=== PATIENT | female | born 1965 | race Caucasian/White ===

== ENCOUNTER 2016-08-07 12:17 | Emergency (ER) | payer OTHER ==
--- NOTE | 2016-08-07 17:02 | ED ---
Psych HPI - General Chief Complaint: Psychiatric Symptoms Stated Complaint: Mental Health Time Seen by Provider: 08/07/16 16:27 Source: patient, RN notes reviewed Mode of arrival: ambulatory - History of Present Illness Initial Comments: Patient is a 51-year-old female presents to emergency room for psych evaluation. Patient states he's been feeling depressed for the past few months. Patient states she is on medication for depression. Patient states she is currently going through a separation has been increasingly depressed. Patient states that on and off suicidal ideations. Patient denies any plans. Patient denies current suicidal ideation. Patient has homicidal ideations, visual or auditory hallucinations. Patient states she called her primary care office and was advised to come here for psych evaluation. Patient denies headache, chest pain, shortness of breath, nausea, vomiting. Patient denies alcohol or drug use. Patient denies smoking. Patient denies any health problems. - Related Data Home Medications Medication Instructions Recorded Confirmed Venlafaxine HCl [Effexor] 75 mg PO BID 08/07/16 08/07/16 carBAMazepine [TEGretol] 500 mg PO Q12H 08/07/16 08/07/16 clonazePAM [KlonoPIN] 0.5 - 1 mg PO HS PRN 08/07/16 08/07/16 Allergies Allergy/AdvReac Type Severity Reaction Status Date / Time No Known Allergies Allergy Verified 08/07/16 16:55 Review of Systems ROS Statement: Those systems with pertinent positive or pertinent negative responses have been documented in the HPI. ROS Other: All systems not noted in ROS Statement are negative. Past Medical History Past Medical History: Seizure Disorder Additional Past Medical History / Comment(s): depression epilepsy History of Any Multi-Drug Resistant Organisms: None Reported Additional Past Surgical History / Comment(s): oopherectomy Past Psychological History: Anxiety, Depression Smoking Status: Never smoker Past Alcohol Use History: None Reported Past Drug Use History: None Reported General Exam - General Exam Comments Initial Comments: Sitting in exam room in no acute distress. Limitations: no limitations General appearance: alert, in no apparent distress Head exam: Present: atraumatic, normocephalic, normal inspection Eye exam: Present: normal appearance ENT exam: Present: normal exam Neck exam: Present: normal inspection Respiratory exam: Present: normal lung sounds bilaterally. Absent: respiratory distress Cardiovascular Exam: Present: regular rate, normal rhythm, normal heart sounds Extremities exam: Present: normal inspection Back exam: Present: normal inspection Neurological exam: Present: alert, oriented X3, CN II-XII intact, normal gait Psychiatric exam: Present: normal affect, normal mood Skin exam: Present: warm, dry, intact, normal color. Absent: rash Course Vital Signs 08/07/16 08/07/16 12:47 19:21 Temperature 98.3 F 97 F L Pulse Rate 77 90 Respiratory 18 16 Rate Blood Pressure 129/75 133/75 O2 Sat by Pulse 98 97 Oximetry Medical Decision Making - Medical Decision Making Patient is a 51-year-old female presents emergency room for psychiatric evaluation. Patient medically cleared to be evaluated by psych. Patient evaluated by psych and does not meet admission criteria at this time. Patient was advised to follow-up outpatient. Patient will continue on her current medications. Patient states she understands everything that was discussed with her. Patient states that she will return for any suicidal ideations. - Lab Data Lab Results 08/07/16 Range/Units 16:42 Urine Color Yellow Urine Appearance Clear (Clear) Urine pH 5.5 (5.0-8.0) Ur Specific [place] 1.026 (1.001-1.035) Urine Protein Trace H (Negative) Urine Glucose (UA) Negative (Negative) Urine Ketones Negative (Negative) Urine Blood Small H (Negative) Urine Nitrate Negative (Negative) Urine Bilirubin Negative (Negative) Urine Urobilinogen <2.0 (<2.0) mg/dL Ur Leukocyte Esterase Negative (Negative) Urine RBC 2 (0-5) /hpf Ur Squamous Epith Cells 2 (0-4) /hpf Urine Mucus Rare H (None) /hpf Urine Opiates Screen Not Detected (NotDetected) Ur Oxycodone Screen Not Detected (NotDetected) Urine Methadone Screen Not Detected (NotDetected) Ur Propoxyphene Screen Not Detected (NotDetected) Ur Barbiturates Screen Not Detected (NotDetected) U Tricyclic Antidepress Not Detected (NotDetected) Ur Phencyclidine Scrn Not Detected (NotDetected) Ur Amphetamines Screen Not Detected (NotDetected) U Methamphetamines Scrn Not Detected (NotDetected) U Benzodiazepines Scrn Not Detected (NotDetected) Urine Cocaine Screen Not Detected (NotDetected) U Marijuana (THC) Screen Not Detected (NotDetected) Disposition Clinical Impression: Depression Disposition: HOME SELF-CARE Condition: Good Instructions: Depression (ED) Additional Instructions: Continue with outpatient follow-up. Take medications as directed. If any new symptom arises or symptoms worsen, return to ER as soon as possible. Referrals: None,Stated [Primary Care Provider] - 1-2 days Time of Disposition: 19:10
[2016-08-07 17:17] LABS: Appearance,Urine Clear (Clear); Bilirubin,Urine Negative (Negative); Glucose,Urine (UA) Negative (Negative); Ketones,Urine Negative (Negative); Leukocyte Esterase,Urine Negative (Negative); Mucus,Urine Rare /hpf; Nitrite,Urine Negative (Negative); PH, Urine 5.5 (5.0-8.0); Particle Count 3211; Protein,Urine Trace (Negative); RBC,Urine 2 /hpf (0-5); Specific Gravity,Urine 1.026 (1.001-1.035); Squamous Epithelial Cell,Urine 2 /hpf (0-4); UA Billing (MACRO vs. MICRO) MICRO; Urobilinogen,Urine <2.0 mg/dL (<2.0)
[2016-08-07] MEDS ORDERED: ACETAMINOPHEN TAB 500 MG TAB PO STA (18:35)
[2016-08-07 19:21] VITALS: BP 133/75; PULSE 90; RESP 16; TEMP 97
== END 2016-08-07 19:22 | disposition home or self-care (01) ==
LOC: EC 12:17
DX: F32.9 Major depressive disorder, single episode, unspecified (principal); G40.909 Epilepsy, unspecified, not intractable, without status epilepticus; F41.9 Anxiety disorder, unspecified; R45.851 Suicidal ideations; R45.850 Homicidal ideations; Z79.899 Other long term (current) drug therapy
CPT/HCPCS: 80306; 81001; 82075; 99285

== ENCOUNTER 2016-12-14 12:40 | Inpatient (IN) | payer MEDICAID, OTHER ==
--- NOTE | 2016-12-14 13:24 | ED ---
General Adult HPI - General Chief complaint: Psychiatric Symptoms Stated complaint: Mental Health Time Seen by Provider: 12/14/16 13:02 Source: EMS, RN notes reviewed Mode of arrival: EMS - History of Present Illness Initial comments: Patient 51-year-old female significant past medical history for depression, who presents emergency room today with a chief complaint of increased depression over the last few weeks. She states she's slowly been getting worse. She does admit that she's been having thoughts of hurting himself. Gives example of cutting herself. When asked is she suicidal she states she has had some thoughts. She denies any specific plan. Denies any homicidal thoughts or plans. Denies any visual or auditory hallucinations. States she's been taking her medications as prescribed and she did talk to her counselor today who advised coming here to the emergency room for evaluation. Patient denies any recent fever, chills, shortness of breath, chest pain, back pain, abdominal pain , nausea or vomiting, numbness or tingling, dysuria or hematuria, constipation or diarrhea, headaches or visual changes, or any other complaints. - Related Data Home Medications Medication Instructions Recorded Confirmed Venlafaxine HCl [Effexor] 75 mg PO BID 08/07/16 12/14/16 carBAMazepine [TEGretol] 500 mg PO Q12H 08/07/16 12/14/16 clonazePAM [KlonoPIN] 1.5 mg PO HS PRN 08/07/16 12/14/16 [id number] 2 tab PO DAILY PRN 12/14/16 12/14/16 [Excedrin] Venlafaxine HCl [Effexor] 37.5 mg PO BID 12/14/16 12/14/16 Allergies Allergy/AdvReac Type Severity Reaction Status Date / Time No Known Allergies Allergy Verified 12/14/16 13:37 Review of Systems ROS Statement: Those systems with pertinent positive or pertinent negative responses have been documented in the HPI. ROS Other: All systems not noted in ROS Statement are negative. Past Medical History Past Medical History: Seizure Disorder Additional Past Medical History / Comment(s): depression epilepsy History of Any Multi-Drug Resistant Organisms: None Reported Additional Past Surgical History / Comment(s): oopherectomy Past Psychological History: Anxiety, Depression Smoking Status: Never smoker Past Alcohol Use History: None Reported Past Drug Use History: None Reported General Exam - General Exam Comments Initial Comments: General: The patient is awake and alert, in no distress, and does not appear acutely ill. Eye: Pupils are equal, round and reactive to light, extra-ocular movements are intact. No nystagmus. There is normal conjunctiva bilaterally. No signs of icterus. Ears, nose, mouth and throat: There are moist mucous membranes and no oral lesions. Neck: The neck is supple, there is no tenderness or JVD. Cardiovascular: There is a regular rate and rhythm. No murmur, rub or gallop is appreciated. Respiratory: Lungs are clear to auscultation, respirations are non-labored, breath sounds are equal. No wheezes, stridor, rales, or rhonchi. Musculoskeletal: Normal ROM, no tenderness. Strength 5/5. Sensation intact. Pulses equal bilaterally 2+. Neurological: A&O x 3. CN II-XII intact, There are no obvious motor or sensory deficits. Coordination appears grossly intact. Speech is normal. Skin: Skin is warm and dry and no rashes or lesions are noted. Psychiatric: Cooperative. Course Vital Signs 12/14/16 12:45 Temperature 98.1 F Pulse Rate 80 Respiratory 18 Rate Blood Pressure 147/81 O2 Sat by Pulse 94 L Oximetry Medical Decision Making - Medical Decision Making Patient has been seen here in the emergency room by [facility]. They've recommended admission to the hospital. - Lab Data Lab Results 12/14/16 Range/Units 13:04 Urine Opiates Screen Not Detected (NotDetected) Ur Oxycodone Screen Not Detected (NotDetected) Urine Methadone Screen Not Detected (NotDetected) Ur Propoxyphene Screen Not Detected (NotDetected) Ur Barbiturates Screen Not Detected (NotDetected) U Tricyclic Antidepress Not Detected (NotDetected) Ur Phencyclidine Scrn Not Detected (NotDetected) Ur Amphetamines Screen Not Detected (NotDetected) U Methamphetamines Scrn Not Detected (NotDetected) U Benzodiazepines Scrn Not Detected (NotDetected) Urine Cocaine Screen Not Detected (NotDetected) U Marijuana (THC) Screen Not Detected (NotDetected) Disposition Clinical Impression: Depression Disposition: TRANSFER TO PSYCH HOSP/UNIT Condition: Stable Referrals: Gayatri Lopez MD [Primary Care Provider] - 1-2 days Time of Disposition: 14:45
[2016-12-14] MEDS ORDERED: ACETAMINOPHEN TAB 500 MG TAB PO STA (17:53)
[2016-12-14] MEDS ORDERED: MAG HYDROX/AL HYDROX/SIMETH 30 ML CUP PO PRN (17:58)
[2016-12-14] MEDS ORDERED: MAGNESIUM HYDROXIDE 2,400 MG/10 ML CUP PO PRN (17:58)
[2016-12-14] MEDS ORDERED: LORazepam 1 MG TAB PO PRN (17:58)
[2016-12-14] MEDS ORDERED: NICOTINE 14MG/24HR PATCH TRANSDERM SCH (18:00)
[2016-12-14] MEDS ORDERED: ONDANSETRON ODT 4 MG TAB PO STA (18:09)
[2016-12-14] MEDS ORDERED: KETOROLAC 60 MG/2 ML VIAL IM STA (18:09)
[2016-12-14 20:14] LABS: Appearance,Urine Clear (Clear); Bilirubin,Urine Negative (Negative); Glucose,Urine (UA) Negative (Negative); Ketones,Urine 1+ (Negative); Leukocyte Esterase,Urine Negative (Negative); Mucus,Urine Occasional /hpf; Nitrite,Urine Negative (Negative); Particle Count 2837; Protein,Urine Trace (Negative); RBC,Urine 8 /hpf (0-5); Specific Gravity,Urine 1.023 (1.001-1.035); Squamous Epithelial Cell,Urine 3 /hpf (0-4); UA Billing (MACRO vs. MICRO) MICRO; Urobilinogen,Urine <2.0 mg/dL (<2.0); WBC,Urine 2 /hpf (0-5)
[2016-12-14] MEDS: VENLAFAXINE HCL 75 MG TAB PO SCH (20:46)
[2016-12-14] MEDS: VENLAFAXINE HCL 37.5 MG TAB PO SCH (20:46)
[2016-12-14] MEDS ORDERED: carBAMazepine 200 MG TAB PO SCH ×2 (21:00→21:15)
[2016-12-14] MEDS: clonazePAM 0.5 MG TAB PO PRN (21:21)
[2016-12-14] MEDS: ASPIRIN-ACET-CAFF 250-250-65MG 1 EACH TAB PO PRN (21:21)
[2016-12-14] MEDS: carBAMazepine 200 MG TAB PO SCH (21:33)
[2016-12-15] MEDS: carBAMazepine 200 MG TAB PO SCH ×2 (08:59→20:32)
[2016-12-15] MEDS: VENLAFAXINE HCL 75 MG TAB PO SCH (09:00)
[2016-12-15] MEDS: VENLAFAXINE HCL 37.5 MG TAB PO SCH (09:00)
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
[2016-12-15] MEDS: ASPIRIN-ACET-CAFF 250-250-65MG 1 EACH TAB PO PRN (10:46)
[2016-12-15 11:38] LABS: Basophils % (A) 0 %; CH 33.2; CHCM 32.6; Eosinophils # (A) 0.1 k/uL (0-0.7); Eosinophils % (A) 2 %; HDW 2.42; HGB 13.1 gm/dL (11.4-16.0); Luc # (Auto) 0.12; Luc % (Auto) 2; Lymphocytes # (A) 1.6 k/uL (1.0-4.8); Lymphocytes % (A) 26 %; MCH 32.7 pg (25.0-35.0); MCV 102.3 fL (80.0-100.0); Macrocytosis Slight; Mean Platelet Volume 6.9; Monocytes # (A) 0.5 k/uL (0-1.0); Monocytes % (A) 8 %; Neutrophils # (A) 3.6 k/uL (1.3-7.7); Neutrophils % (A) 62 %; RBC 4.01 m/uL (3.80-5.40); RDW 13.1 % (11.5-15.5); WBC 5.9 k/uL (3.8-10.6); WBC (Perox) 5.98
[2016-12-15 12:02] LABS: ALT 25 U/L (9-52); AST 20 U/L (14-36); Alkaline Phosphatase 79 U/L (38-126); Anion Gap 12 mmol/L; Blood Urea Nitrogen 28 mg/dL (7-17); Calcium 9.5 mg/dL (8.4-10.2); Carbon Dioxide 25 mmol/L (22-30); Chloride 108 mmol/L (98-107); Glucose 91 mg/dL (74-99); Non-African American GFR(MDRD) 58 (>60 ml/min/1.73 sqM); Potassium 4.6 mmol/L (3.5-5.1); Sodium 145 mmol/L (137-145); Total Bilirubin 0.2 mg/dL (0.2-1.3); Total Protein 6.8 g/dL (6.3-8.2)
[2016-12-15 13:20] LABS: Reticulocyte % 1.7 % (0.5-2.0)
[2016-12-15 13:31] LABS: LDH 480 U/L (313-618)
[2016-12-15 14:20] LABS: Vitamin B12 687 pg/mL (239-931)
--- NOTE | 2016-12-15 15:40 | P.CONS ---
History of Present Illness - Reason for Consult Consult date: 12/15/16 Medical management - History of Present Illness This is a 51-year-old female patient of Dr. Lopez with a past medical history of mitral valve prolapse, hyperlipidemia, epilepsy under the care of Dr. Karlos Velásquez, migraine headaches, depression and anxiety. Patient states that she follows with [facility] as well as Dr. Bautista. She states she has had suicidal thoughts with no plan and did not act on anything. She states she is also been very tearful and was sent into [facility] emergency center for evaluation by her counselor. She states she has been on Effexor for a long period of time and has been on some type of antidepressant for more than 20 years. Regarding her migraine headaches, patient is taking Excedrin which makes it better but she has not had overall improvement. She has been on Topamax in the past but she's been off since more than 2 months ago. She states she feels tired and she also complains of her legs feeling tired when she walks and calf pain. She denies having any workup for this in the doctor's office. MCV is 102. Vitamin B12 687 , TSH 1.180. Urinalysis was clear, nitrate and leukoesterase negative. Urine drug screen was negative and carbamazepine level 10. Review of Systems All systems: negative Constitutional: Reports fatigue, Denies chills, Denies fever Eyes: denies blurred vision, denies pain Ears, nose, mouth and throat: Denies headache, Denies sore throat Cardiovascular: Denies chest pain, Denies shortness of breath Respiratory: Denies cough Gastrointestinal: Denies abdominal pain, Denies diarrhea, Denies nausea, Denies vomiting Genitourinary: Denies dysuria, Denies hematuria Musculoskeletal: Denies myalgias Integumentary: Denies pruritus, Denies rash Neurological: Denies numbness, Denies weakness Psychiatric: Reports depression, Reports hopelessness, Reports suicidal ideation , Denies anxiety Endocrine: Denies fatigue, Denies weight change Past Medical History Past Medical History: Hyperlipidemia, Seizure Disorder Additional Past Medical History / Comment(s): Migraine headaches, mitral valve prolapse, epilepsy History of Any Multi-Drug Resistant Organisms: None Reported Additional Past Surgical History / Comment(s): oopherectomy left due to endometriosis Past Psychological History: Anxiety, Depression Smoking Status: Never smoker Past Alcohol Use History: None Reported Additional Past Alcohol Use History / Comment(s): Patient is a lifelong nonsmoker. She denies any medical marijuana, marijuana, street drug or alcohol use. Past Drug Use History: None Reported - Past Family History Father Additional Family Medical History / Comment(s): Father at age 56 due to cirrhosis of the liver secondary to alcohol abuse. Mother Additional Family Medical History / Comment(s): Mother at age 73 from breast cancer. Brother(s) Additional Family Medical History / Comment(s): Patient has 3 brothers. One brother from cirrhosis of the liver secondary to alcohol abuse. 2 brothers have atrial fibrillation. Sister(s) Additional Family Medical History / Comment(s): Patient has 2 sisters with diabetes. Patient does not have any children. Medications and Allergies Home Medications Medication Instructions Recorded Confirmed Type Venlafaxine HCl [Effexor] 75 mg PO BID 08/07/16 12/15/16 History carBAMazepine [TEGretol] 500 mg PO Q12H 08/07/16 12/15/16 History clonazePAM [KlonoPIN] 1.5 mg PO HS PRN 08/07/16 12/15/16 History Zymxkry-Rilz-[id number] [id number] 2 tab PO DAILY PRN 12/14/16 12/15/16 History [Excedrin] Venlafaxine HCl [Effexor] 37.5 mg PO BID 12/14/16 12/15/16 History Allergies Allergy/AdvReac Type Severity Reaction Status Date / Time No Known Allergies Allergy Verified 12/15/16 00:48 Physical Exam Vitals: Vital Signs Temp Pulse Pulse Pulse Resp BP BP 12/15/16 06:23 98.0 F 69 17 104/64 12/14/16 18:52 97.7 F 85 18 12/14/16 17:55 98.1 F 88 20 131/68 12/14/16 12:45 98.1 F 80 18 147/81 BP Pulse Ox 12/15/16 06:23 12/14/16 18:52 141/92 12/14/16 17:55 98 12/14/16 12:45 94 L Gen: This is a 51-year-old female. She is cooperative and appears to be in no acute distress. HEENT: Head is atraumatic, normocephalic. Pupils equal, round. Sclerae is anicteric. NECK: Supple. No JVD. No lymphadenopathy. No thyromegaly. LUNGS: Clear to auscultation. No wheezes or rhonchi. No intercostal retractions. HEART: Regular rate and rhythm. No murmur. ABDOMEN: Soft. Bowel sounds are present. No masses. No tenderness. EXTREMITIES: No pedal edema. No calf tenderness. Dorsalis pedis is weak bilaterally. NEUROLOGICAL: Patient is awake, alert and oriented x3. Cranial nerves 2 through 12 are grossly intact. Results CBC & Chem 7: 12/15/16 11:21 12/15/16 11:21 Labs: Abnormal Lab Results - Last 24 Hours (Table) 12/14/16 12/15/16 Range/Units 19:50 11:21 MCV 102.3 H (80.0-100.0) fL Urine Protein Trace H (Negative) Urine Ketones 1+ H (Negative) Urine Blood Small H (Negative) Urine RBC 8 H (0-5) /hpf Urine Mucus Occasional H (None) /hpf Assessment and Plan Plan: 1. Depression, recurrent with suicidal ideation. Patient admitted to the mental health unit. Continue current plan of care. 2. No tobacco use. No need for nicotine patch. 3. History of migraine headaches which are occurring weekly. Continue Excedrin. Topamax 50 mg at bedtime will be ordered with plan that she have 100 mg at bedtime at the time of discharge. 4. Possible peripheral arterial disease. Arterial Doppler studies ordered for the bilateral lower extremities. Patient will follow-up with her primary care physician. Impression and plan of care have been directed as dictated by the signing physician. Heidi Gao nurse practitioner acting as scribe for signing physician.
[2016-12-15] MEDS: ACETAMINOPHEN TAB 325 MG TAB PO PRN (16:22)
[2016-12-15 16:44] VITALS: BMI 28.1
[2016-12-15] MEDS: TOPIRAMATE 25 MG TAB PO SCH (20:32)
[2016-12-15] MEDS: clonazePAM 0.5 MG TAB PO PRN (20:34)
[2016-12-15 20:38] VITALS: RESP 16
[2016-12-16] MEDS: carBAMazepine 200 MG TAB PO SCH ×2 (08:51→21:04)
[2016-12-16] MEDS: VENLAFAXINE HCL ER 75 MG CAP PO SCH (08:52)
[2016-12-16] MEDS: VENLAFAXINE HCL ER 37.5 MG CAP PO SCH (08:52)
[2016-12-16] MEDS: ASPIRIN-ACET-CAFF 250-250-65MG 1 EACH TAB PO PRN (11:11)
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
[2016-12-16] MEDS: TOPIRAMATE 25 MG TAB PO SCH (21:02)
[2016-12-17] MEDS: carBAMazepine 200 MG TAB PO SCH ×2 (08:29→20:10)
[2016-12-17] MEDS: VENLAFAXINE HCL ER 37.5 MG CAP PO SCH (08:30)
[2016-12-17] MEDS: VENLAFAXINE HCL ER 75 MG CAP PO SCH (08:30)
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
[2016-12-17] MEDS: ACETAMINOPHEN TAB 325 MG TAB PO PRN (20:09)
[2016-12-17] MEDS: TOPIRAMATE 25 MG TAB PO SCH (20:10)
[2016-12-17] MEDS: clonazePAM 0.5 MG TAB PO PRN (21:00)
[2016-12-18 07:07] VITALS: BP 118/56; PULSE 79; TEMP 97.6
[2016-12-18] MEDS ORDERED: DULoxetine HCL 30 MG CAPSULE.DR PO SCH (09:00)
[2016-12-18] MEDS: VENLAFAXINE HCL ER 75 MG CAP PO SCH (09:09)
[2016-12-18] MEDS: VENLAFAXINE HCL ER 37.5 MG CAP PO SCH (09:09)
[2016-12-18] MEDS: carBAMazepine 200 MG TAB PO SCH (09:09)
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
== END 2016-12-18 12:08 | disposition home or self-care (01) | DRG 885 ==
LOC: EC 12:40 → 3MHU 17:42
PROVIDERS: ADMIT Psychiatry & Neurology Psychiatry; ATTEND Psychiatry & Neurology Psychiatry
DX: F33.2 Major depressive disorder, recurrent severe without psychotic features (principal); G40.409 Other generalized epilepsy and epileptic syndromes, not intractable, without status epilepticus; R45.851 Suicidal ideations; G43.909 Migraine, unspecified, not intractable, without status migrainosus; Z91.5 Personal history of self-harm; Z59.6 Low income; F41.0 Panic disorder [episodic paroxysmal anxiety]; I34.1 Nonrheumatic mitral (valve) prolapse; E78.5 Hyperlipidemia, unspecified; Z79.82 Long term (current) use of aspirin; Z79.899 Other long term (current) drug therapy
CPT/HCPCS: 80053; 80156; 80306; 81001; 82075; 82607; 83615; 84425; 84443; 85025; 85045; 99285

== ENCOUNTER → 2017-08-30 | Outpatient (CLI) | payer OTHER ==
--- NOTE | 2017-08-30 10:43 | XR ---
EXAMINATION TYPE: XR foot complete RT DATE OF EXAM: 08/30/2017 COMPARISON: NONE HISTORY: Pain TECHNIQUE: Three views are submitted. FINDINGS: The osseous structures are intact and there is hypertrophic change and narrowing of the first MTP. T here is no acute fracture or dislocation. Large plantar calcaneal spur noted. IMPRESSION: 1. No acute fracture or dislocation. If symptoms persist, follow-up exam in 7 to 10 days could be ob tained.
--- NOTE | 2017-08-30 10:44 | XR ---
EXAMINATION TYPE: XR ankle complete RT DATE OF EXAM: 08/30/2017 COMPARISON: NONE HISTORY: Pain FINDINGS: Three views of the ankle demonstrate the ankle mortise to be intact and symmetric. The joint spaces are preserved. The osseous structures are intact. Large calcaneal spur noted. IMPRESSION: 1. No definite acute fracture or dislocation, if symptoms persist follow-up study in 7 to 10 days wou ld be suggested.
== END | disposition home or self-care (01) ==
LOC: RADXRMAIN 09:25
PROVIDERS: ATTEND Internal Medicine
DX: M79.671 Pain in right foot (principal)

== ENCOUNTER → 2017-09-11 | Outpatient (CLI) | payer OTHER | END | disposition home or self-care (01) | LOC: LABWHC1 07:25 | PROVIDERS: ATTEND Psychiatry & Neurology Neurology | DX: G40.109 Localization-related (focal) (partial) symptomatic epilepsy and epileptic syndromes with simple partial seizures, not intractable, without status epilepticus (principal) | CPT/HCPCS: 36415; 80156; 80175 ==

== ENCOUNTER → 2018-04-10 | Outpatient (CLI) | payer OTHER ==
--- NOTE | 2018-04-12 13:11 | MM ---
Reason for exam: screening (asymptomatic). Last mammogram was performed 2 years and 8 months ago. History: Patient is postmenopausal and is nulliparous. Family history of breast cancer in maternal aunt, breast cancer in mother at age 63, and breast cancer in paternal grandmother at age 63. Physical Findings: A clinical breast exam by your physician is recommended on an annual basis and results should be correlated with mammographic findings. MG Screening Mammo w CAD Bilateral CC and MLO view(s) were taken. Prior study comparison: August 09, 2015, left breast MG 3d diag mammo w/cad LT. February 04, 2015, left breast MG work up mamm w CAD LT. The breast tissue is extremely dense which could obscure a lesion on mammography. No significant changes when compared with prior studies. ASSESSMENT: Benign, BI-RAD 2 RECOMMENDATION: Routine screening mammogram of both breasts in 1 year.
== END | disposition home or self-care (01) ==
LOC: RADMAMWWP 10:20
PROVIDERS: ATTEND Internal Medicine
DX: Z12.31 Encounter for screening mammogram for malignant neoplasm of breast (principal)
CPT/HCPCS: 77067

== ENCOUNTER → 2018-07-18 | Outpatient (CLI) | payer OTHER | LOC: LABWHC1 07:09 | PROVIDERS: ATTEND Psychiatry & Neurology Neurology | DX: G40.109 Localization-related (focal) (partial) symptomatic epilepsy and epileptic syndromes with simple partial seizures, not intractable, without status epilepticus (principal) | CPT/HCPCS: 36415; 80156 ==

== ENCOUNTER → 2018-07-29 | Outpatient (CLI) | payer OTHER ==
--- NOTE | 2018-07-29 08:39 | XR ---
EXAMINATION TYPE: XR chest 2V DATE OF EXAM: 07/29/2018 COMPARISON: NONE TECHNIQUE: PA and lateral views submitted. HISTORY: Wheezing FINDINGS: The lungs are clear and there is no pneumothorax, pleural effusion, or focal pneumonia. Atheroscler otic change aorta. Hypertrophic and degenerative change spine. No failure IMPRESSION: 1. No acute process.
--- NOTE | 2018-07-29 08:40 | XR ---
EXAMINATION TYPE: XR knee complete LT DATE OF EXAM: 07/29/2018 COMPARISON: NONE HISTORY: Pain TECHNIQUE: Four views are submitted. FINDINGS: There is narrowing the medial compartment of the knee joint. No erosive changes. Osseous structures are intact. No acute fracture seen. IMPRESSION: 1. No acute fracture or dislocation. 2. Osteoarthritis. If concern for internal derangement correlate with MRI
== END | disposition home or self-care (01) ==
LOC: LABWHC1 07:21
PROVIDERS: ATTEND Internal Medicine
DX: R06.2 Wheezing (principal); I34.1 Nonrheumatic mitral (valve) prolapse; M17.12 Unilateral primary osteoarthritis, left knee; G40.109 Localization-related (focal) (partial) symptomatic epilepsy and epileptic syndromes with simple partial seizures, not intractable, without status epilepticus
CPT/HCPCS: 36415; 71046; 80156

== ENCOUNTER → 2019-05-07 | Outpatient (CLI) | payer OTHER | LOC: LABWHC1 08:11 | PROVIDERS: ATTEND Psychiatry & Neurology Neurology | DX: G40.109 Localization-related (focal) (partial) symptomatic epilepsy and epileptic syndromes with simple partial seizures, not intractable, without status epilepticus (principal) | CPT/HCPCS: 36415; 80156 ==

== ENCOUNTER → 2020-12-24 | Outpatient (CLI) | payer OTHER ==
[2020-12-24 17:15] LABS: Carbamazepine (Tegretol) 9.1 ug/mL (4.0-12.0)
[2020-12-24 18:49] LABS: T4, Free (Free Thyroxine) 0.8 ng/dL (0.80-1.80)
== END | disposition home or self-care (01) ==
LOC: LABWHC1 08:36
PROVIDERS: ATTEND Psychiatry & Neurology Neurology
DX: G40.109 Localization-related (focal) (partial) symptomatic epilepsy and epileptic syndromes with simple partial seizures, not intractable, without status epilepticus (principal); R53.83 Other fatigue; R25.1 Tremor, unspecified; Z79.899 Other long term (current) drug therapy
CPT/HCPCS: 36415; 80156; 84295; 84439; 84443

== ENCOUNTER 2021-05-24 13:09 | Inpatient (IN) | payer MEDICAID, OTHER ==
--- NOTE | 2021-05-24 15:38 | ED ---
General Adult HPI - General Chief complaint: Psychiatric Symptoms Stated complaint: mental health Source: patient, RN notes reviewed Mode of arrival: ambulatory Limitations: no limitations - History of Present Illness Initial comments: Patient is a pleasant 55-year-old female presenting to the emergency department with concerns for depression. Patient is unclear why but states her depression has worsened recently. Patient also has had some increased anxiety. Patient is having thoughts of self-harm thoughts of cutting herself. No homicidal thoughts. No hallucinations. Patient has been shaky. No alcohol or street drug use. - Related Data Home Medications Medication Instructions Recorded Confirmed carBAMazepine [TEGretol] 300 mg PO BID 08/07/16 05/24/21 Auaamsf-Fiow-Gawv [id number] 2 tab PO DAILY PRN 12/14/16 05/24/21 [Excedrin] Atorvastatin Calcium [Lipitor] 80 mg PO HS 05/24/21 05/24/21 Brexpiprazole [Rexulti] 1 mg PO DAILY 05/24/21 05/24/21 DULoxetine HCL [Cymbalta] 120 mg PO DAILY 05/24/21 05/24/21 Propranolol HCl [Inderal Xl] 80 mg PO DAILY 05/24/21 05/24/21 clonazePAM [KlonoPIN] 0.5 mg PO DAILY PRN 05/24/21 05/24/21 clonazePAM [KlonoPIN] 1 - 2 mg PO HS 05/24/21 05/24/21 lamoTRIgine [LaMICtal] 300 mg PO DAILY 05/24/21 05/24/21 Allergies Allergy/AdvReac Type Severity Reaction Status Date / Time No Known Allergies Allergy Verified 05/24/21 16:48 Review of Systems ROS Statement: Those systems with pertinent positive or pertinent negative responses have been documented in the HPI. ROS Other: All systems not noted in ROS Statement are negative. Constitutional: Denies: fever Eyes: Denies: eye pain ENT: Denies: ear pain Respiratory: Denies: cough Cardiovascular: Denies: chest pain Endocrine: Denies: fatigue Gastrointestinal: Denies: abdominal pain Genitourinary: Denies: dysuria Musculoskeletal: Denies: back pain Skin: Denies: rash Neurological: Denies: headache Psychiatric: Reports: anxiety, depression, suicidal thoughts. Denies: auditory hallucinations, visual hallucinations, homicidal thoughts Past Medical History Past Medical History: Hyperlipidemia, Seizure Disorder Additional Past Medical History / Comment(s): Migraine headaches, mitral valve prolapse, epilepsy History of Any Multi-Drug Resistant Organisms: None Reported Additional Past Surgical History / Comment(s): oopherectomy left due to endometriosis Past Psychological History: Anxiety, Depression Past Alcohol Use History: None Reported Past Drug Use History: None Reported - Past Family History Father Additional Family Medical History / Comment(s): Father at age 56 due to cirrhosis of the liver secondary to alcohol abuse. Mother Additional Family Medical History / Comment(s): Mother at age 73 from breast cancer. Brother(s) Additional Family Medical History / Comment(s): Patient has 3 brothers. One brother from cirrhosis of the liver secondary to alcohol abuse. 2 brothers have atrial fibrillation. Sister(s) Additional Family Medical History / Comment(s): Patient has 2 sisters with diabetes. Patient does not have any children. General Exam Limitations: no limitations General appearance: alert, in no apparent distress Head exam: Present: normocephalic Eye exam: Present: normal appearance Neck exam: Present: normal inspection Respiratory exam: Present: normal lung sounds bilaterally Cardiovascular Exam: Present: regular rate, normal rhythm GI/Abdominal exam: Present: soft. Absent: tenderness Extremities exam: Present: normal inspection Neurological exam: Present: alert Psychiatric exam: Present: depressed Skin exam: Present: normal color Course Vital Signs 05/24/21 14:18 Temperature 98.9 F Pulse Rate 67 Respiratory 19 Rate Blood Pressure 132/81 O2 Sat by Pulse 94 L Oximetry Medical Decision Making - Medical Decision Making Patient was seen by mental health services with plan for admission. Patient did sign in. - Lab Data Lab Results 05/24/21 Range/Units 15:27 Urine Opiates Screen Not Detected (NotDetected) Ur Oxycodone Screen Not Detected (NotDetected) Urine Methadone Screen Not Detected (NotDetected) Ur Propoxyphene Screen Not Detected (NotDetected) Ur Barbiturates Screen Not Detected (NotDetected) U Tricyclic Antidepress Not Detected (NotDetected) Ur Phencyclidine Scrn Not Detected (NotDetected) Ur Amphetamines Screen Not Detected (NotDetected) U Methamphetamines Scrn Not Detected (NotDetected) U Benzodiazepines Scrn Detected H (NotDetected) Urine Cocaine Screen Not Detected (NotDetected) U Marijuana (THC) Screen Not Detected (NotDetected) Disposition Clinical Impression: Depression, Suicidal ideation Disposition: TRANSFER TO PSYCH HOSP/UNIT Is patient prescribed a controlled substance at d/c from ED?: No Referrals: Walt Rivera MD [Primary Care Provider] - 1-2 days Decision Time: 20:42
[2021-05-24 16:03] LABS: Amphetamine Screen,Urine Not Detected (NotDetected); Barbiturate Screen,Urine Not Detected (NotDetected); Benzodiazepines Screen,Urine Detected (NotDetected); Cocaine Screen,Urine Not Detected (NotDetected); Methadone Screen, Urine Not Detected (NotDetected); Opiate Screen,Urine Not Detected (NotDetected); Oxycodone Screen, Urine Not Detected (NotDetected); Phencyclidine Screen,Urine Not Detected (NotDetected); Tricyclic Antidepressant,Urine Not Detected (NotDetected); Urn Cannabinoid Scrn Not Detected (NotDetected)
[2021-05-24] MEDS ORDERED: clonazePAM 0.5 MG TAB PO PRN (23:30)
[2021-05-25] MEDS ORDERED: clonazePAM 1 MG TAB PO PRN
[2021-05-25] MEDS ORDERED: MAGNESIUM HYDROXIDE 2,400 MG/10 ML CUP PO PRN
[2021-05-25] MEDS ORDERED: HALOPERIDOL LACTATE 5 MG/ML 1 ML VIAL IM PRN
[2021-05-25] MEDS ORDERED: MAG HYDROX/AL HYDROX/SIMETH 30 ML CUP PO PRN
[2021-05-25] MEDS: ATORVASTATIN 80 MG TAB PO SCH ×2 (00:16→20:43)
[2021-05-25] MEDS: ACETAMINOPHEN TAB 325 MG TAB PO PRN ×2 (00:24→08:21)
[2021-05-25] MEDS: lamoTRIgine 100 MG TAB PO SCH (07:52)
[2021-05-25] MEDS: PROPRANOLOL LA 80 MG CAP.SA.24H PO SCH (07:53)
[2021-05-25 08:00] LABS: Basophils # (A) 0.1 k/uL (0-0.2); Basophils % (A) 1 %; Eosinophils # (A) 0.2 k/uL (0-0.7); Eosinophils % (A) 2 %; HCT 39.9 % (34.0-46.0); HGB 13.1 gm/dL (11.4-16.0); Lymphocytes % (A) 18 %; MCH 33.2 pg (25.0-35.0); MCHC 32.8 g/dL (31.0-37.0); MCV 101.4 fL (80.0-100.0); Macrocytosis Slight; Monocytes # (A) 0.7 k/uL (0-1.0); Monocytes % (A) 7 %; Neutrophils % (A) 72 %; Platelet Count 280 k/uL (150-450); RBC 3.94 m/uL (3.80-5.40); RDW 13.3 % (11.5-15.5); WBC 11.2 k/uL (3.8-10.6)
[2021-05-25 08:19] LABS: Albumin 4.1 g/dL (3.5-5.0); Calcium 9.7 mg/dL (8.4-10.2); Potassium 4.5 mmol/L (3.5-5.1); Total Bilirubin 0.4 mg/dL (0.2-1.3); Total Protein 6.7 g/dL (6.3-8.2)
[2021-05-25] MEDS ORDERED: DULoxetine HCL 60 MG CAPSULE.DR PO SCH (09:00)
[2021-05-25] MEDS ORDERED: ASPIRIN-ACET-CAFF 250-250-65MG 1 EACH TAB PO PRN (09:00)
--- NOTE | 2021-05-25 12:55 | P.HP ---
Psychiatric H&P - . H&P Date: 05/25/21 History & Physical: Allergies Allergy/AdvReac Type Severity Reaction Status Date / Time No Known Allergies Allergy Verified 05/24/21 16:48 Vital Signs Temp 97.3 F L 05/25/21 05:58 Pulse 72 05/25/21 05:58 Resp 16 05/25/21 05:58 BP 132/73 05/25/21 05:58 Pulse Ox 99 05/24/21 23:53 Intake & Output 05/24/21 05/25/21 05/25/21 18:59 06:59 18:59 Weight 86.183 kg 87.146 kg Laboratory Last Values WBC 11.2 k/uL (3.8-10.6) H 05/25/21 07:05 RBC 3.94 m/uL (3.80-5.40) 05/25/21 07:05 Hgb 13.1 gm/dL (11.4-16.0) 05/25/21 07:05 Hct 39.9 % (34.0-46.0) 05/25/21 07:05 MCV 101.4 fL (80.0-100.0) H 05/25/21 07:05 MCH 33.2 pg (25.0-35.0) 05/25/21 07:05 MCHC 32.8 g/dL (31.0-37.0) 05/25/21 07:05 RDW 13.3 % (11.5-15.5) 05/25/21 07:05 Plt Count 280 k/uL (150-450) 05/25/21 07:05 MPV 7.0 05/25/21 07:05 Neutrophils % 72 % 05/25/21 07:05 Lymphocytes % 18 % 05/25/21 07:05 Monocytes % 7 % 05/25/21 07:05 Eosinophils % 2 % 05/25/21 07:05 Basophils % 1 % 05/25/21 07:05 Neutrophils # 8.0 k/uL (1.3-7.7) H 05/25/21 07:05 Lymphocytes # 2.0 k/uL (1.0-4.8) 05/25/21 07:05 Monocytes # 0.7 k/uL (0-1.0) 05/25/21 07:05 Eosinophils # 0.2 k/uL (0-0.7) 05/25/21 07:05 Basophils # 0.1 k/uL (0-0.2) 05/25/21 07:05 Macrocytosis Slight 05/25/21 07:05 Sodium 141 mmol/L (137-145) 05/25/21 07:05 Potassium 4.5 mmol/L (3.5-5.1) 05/25/21 07:05 Chloride 105 mmol/L (98-107) 05/25/21 07:05 Carbon Dioxide 29 mmol/L (22-30) 05/25/21 07:05 Anion Gap 7 mmol/L 05/25/21 07:05 BUN 21 mg/dL (7-17) H 05/25/21 07:05 Creatinine 0.95 mg/dL (0.52-1.04) 05/25/21 07:05 Est GFR (CKD-EPI)AfAm 77 (>60 ml/min/1.73 sqM) 05/25/21 07:05 Est GFR (CKD-EPI)NonAf 67 (>60 ml/min/1.73 sqM) 05/25/21 07:05 Glucose 99 mg/dL (74-99) 05/25/21 07:05 Calcium 9.7 mg/dL (8.4-10.2) 05/25/21 07:05 Total Bilirubin 0.4 mg/dL (0.2-1.3) 05/25/21 07:05 AST 36 U/L (14-36) 05/25/21 07:05 ALT 34 U/L (4-34) 05/25/21 07:05 Alkaline Phosphatase 100 U/L (38-126) 05/25/21 07:05 Total Protein 6.7 g/dL (6.3-8.2) 05/25/21 07:05 Albumin 4.1 g/dL (3.5-5.0) 05/25/21 07:05 TSH 1.470 mIU/L (0.465-4.680) 05/25/21 07:05 Urine Opiates Screen Not Detected (NotDetected) 05/24/21 15:27 Ur Oxycodone Screen Not Detected (NotDetected) 05/24/21 15:27 Urine Methadone Screen Not Detected (NotDetected) 05/24/21 15:27 Ur Propoxyphene Screen Not Detected (NotDetected) 05/24/21 15:27 Ur Barbiturates Screen Not Detected (NotDetected) 05/24/21 15:27 U Tricyclic Antidepress Not Detected (NotDetected) 05/24/21 15:27 Ur Phencyclidine Scrn Not Detected (NotDetected) 05/24/21 15:27 Ur Amphetamines Screen Not Detected (NotDetected) 05/24/21 15:27 U Methamphetamines Scrn Not Detected (NotDetected) 05/24/21 15:27 U Benzodiazepines Scrn Detected (NotDetected) H 05/24/21 15:27 Urine Cocaine Screen Not Detected (NotDetected) 05/24/21 15:27 U Marijuana (THC) Screen Not Detected (NotDetected) 05/24/21 15:27 Coronavirus (PCR) Not Detected (Not Detectd) 05/24/21 21:00 05/25/21 12:54 IDENTIFYING DATA: Patient is a single, employed, 85-year-old female with significant history of depression, anxiety, and seizure disorder who presents to the hospital with worsening depression and suicidal ideation. HPI: Patient presented to the hospital on 05/24/21, and on her own volition due to concerns for worsening depression. Upon evaluation the psychiatric unit, the patient has been reporting that she's been feeling increasingly depressed over the past 6 months. She endorses significant symptoms of depression including anhedonia, crying episodes, irritability, low energy, hopelessness, as well as urges to self-harm. Of concern to the patient, is that she has began experiencing suicidal ideation with a plan to jump out of her third story window. The patient reports numerous stressors that are contributing to her low mood. She reports that she is currently dealing with elevated anxiety due to financial issues which has been causing increased stress for her and her partner. The patient is not reporting any significant history of bipolar symptoms. She reports no history of increased goal-directed activity, mood lability, periods of excessive energy, or grandiosity. The patient does not endorse any significant history of psychosis. She reports no auditory or visual hallucinations. She denies any paranoia or other delusions. The patient reports that her issues with depression and anxiety follow this normal pattern. She states that she'll be stable for many months prior to her medications "not working anymore." She is currently open with [facility] and sees Dr. Bautista as well as a therapist that she sees every other week. PAST PSYCHIATRIC HISTORY: Patient states that she has been previously diagnosed with depression and anxiety. The patient reports previous trials of Prozac, Zoloft, lithium, Wellbutrin. She is currently on a home regimen of Cymbalta, Lamictal, and Klonopin. The patient reports that she was last hospitalized in the psychiatric unit approximately 4 years ago on this unit. The patient is currently open with [facility]. As reported 2 prior attempts at suicide in the past by cutting her wrist and overdosing. PMH: Past Medical History: Hyperlipidemia, Seizure Disorder Additional Past Medical History / Comment(s): Migraine headaches, mitral valve prolapse, epilepsy History of Any Multi-Drug Resistant Organisms: None Reported Additional Past Surgical History / Comment(s): oopherectomy left due to endometriosis Past Psychological History: Anxiety, Depression Past Alcohol Use History: None Reported Past Drug Use History: None Reported ALLERGIES: NO KNOWN DRUG ALLERGIES CHEMICAL DEPENDENCY HISTORY: Denies any tobacco, alcohol, marijuana, or illicit drug use. FAMILY PSYCHIATRIC/SUBSTANCE USE HISTORY: Patient reports that her father and brother were alcoholics and both due to liver cirrhosis. SOCIAL HISTORY: Patient was born and raised in [place], [place]. The patient reports that growing up was difficult as her father experienced liver cirrhosis and between the ages of 8 and 18 she witnessed both the physical and mental deterioration of her father. She currently lives with her boyfriend John whom she has been with for 20 years. Also present in the home is John son. She denies any significant history of sexual or physical abuse. She does report a history of emotional abuse. 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 MENTAL STATUS EXAM: General Appearance: Patient appears to be stated age is alert, directable, and attempts to cooperate. Patient appears to have fair hygiene and grooming. Behavior: Patient is seated without any agitated behavior. Eye contact is appropriate Speech: Patient's speech is fluent and nonpressured. Mood/Affect: Patient reports their mood is depressed, affect is congruent and constricted. Suicidality/Homicidality: The patient is currently denying any suicidal or homicidal ideation, intention, and/or plan. Perceptions: Patient denies any visual hallucinations and denies any auditory hallucinations Though content/process: There is no evidence of any delusional thought content and thought process is linear and goal-directed. Memory and concentration: AOX3, grossly intact for the purposes of this session. Can spell "WORLD" backwards Judgment and insight: Fair STRENGTHS/WEAKNESSES: Strength is that the patient is resilient and has significant supports. She is also gainfully employed and is future oriented. Weakness is that the patient has been chronically prescribed benzodiazepine medications and appears to have some personality traits disposing her to mental illness. INTELLECT: average IMPRESSIONS: Major depressive disorder, recurrent, severe, with anxious features Cluster B personality traits PLAN: -Patient is admitted under voluntary status to MHU for stabilization of psychiatric symptoms and safety. Patient signed adult voluntary form and medication consent and is placed in patient's chart. -Medications : We will decrease Cymbalta to 60 mg by mouth daily and start Effexor XR 37.5 mg daily for depression/anxiety. Lamictal 300 mg by mouth daily for mood disposition Carbamazepine 300 mg by mouth twice a day for seizure disorder -Klonopin and Haldol PRN for agitation/aggression -Patient was counselled on substance abuse and desired to cut back on use -Patient was informed of the risks, benefits and side effects of the medication and patient verbally consented to taking the medications. Patient signed med consent form and was placed in chart. -Internal Medicine consult to perform medical evaluation and physical. -NRT - nicotine patch -SW on board for discharge planning. Encourage patient to participate in groups to work on coping skills. 05/25/21 12:55
[2021-05-25 16:01] LABS: Chol/HDL Ratio 3.28 Ratio; LDL Cholesterol,Calculated 108.6 mg/dL (0.0-131.0); VLDL Calculation 23.4 mg/dL (5.00-40.00)
--- NOTE | 2021-05-25 22:38 | P.CONS ---
History of Present Illness - Reason for Consult Consult date: 05/25/21 - History of Present Illness The patient is a 55-year-old female with a PMH of seizure disorder, hyperlipidemia, depression, chronic migraines, and anxiety who presented to the emergency room with depression. The patient was admitted to the mental health unit where she was seen and evaluated. She reports struggling with depression for several years with little improvement despite use of her antidepressants. She denied any particular social issues. She further denied tobacco use or drug use. Denied any additional complaints as well. He denied chest discomfort, shortness of breath, chills, cough, nausea, vomiting, abdominal pain, diarrhea. Laboratory evaluation was remarkable for leukocytosis of 11.2 with MCV 11.4. Review of systems: Pertinent positives and negatives as discussed in HPI, a complete review of systems was performed and all other systems are negative. Physical examination: General: non toxic, no distress, appears at stated age, obese Derm: no unusual rashes/lesions no unusual ecchymoses, warm, dry Head: atraumatic, normocephalic, symmetric Eyes: EOMI, no lid lag, anicteric sclera, pupils equal round reactive to light ENT: Nose and ears atraumatic, no thrush, no pharyngeal erythema Neck: No thyromegaly, no cervical lymphadenopathy, trachea midline, supple Mouth: no lip lesion, mucus membranes moist Cardiovascular: S1S2 reg, no murmur, positive posterior tibial pulse bilateral, no edema, capillary refill less than 2 seconds Lungs: CTA bilateral, no rhonchi, no rales , no accessory muscle use Abdominal: soft, nontender to palpation, no guarding, no appreciable organomegaly, normal bowel sounds Ext: no gross muscle atrophy, muscle strength 5 out of 5 in all 4 extremities grossly, no contractures, Neuro: CN II-XI grossly intact, light touch intact all 4 extremities, finger to nose within normal limits, Psych: Alert, oriented, appropriate affect Assessment/plan Chronic conditions: Seizure disorder, chronic migraines, hyperlipidemia -Continue with home meds Leukocytosis -No signs of active infection at this time -Possibly due to ongoing stressor -Monitor fornow Depression and anxiety -As per psychiatry Thank you for allowing us to participate in the care of this patient. We will follow peripherally. Do not hesitate to contact us with questions. Someone can be reached from the [facility] hospitalist group at all hours of the day at [phone]. Past Medical History Past Medical History: Hyperlipidemia, Seizure Disorder Additional Past Medical History / Comment(s): Migraine headaches, mitral valve prolapse, epilepsy History of Any Multi-Drug Resistant Organisms: None Reported Additional Past Surgical History / Comment(s): oopherectomy left due to endometriosis Smoking Status: Never smoker - Past Family History Father Additional Family Medical History / Comment(s): Father at age 56 due to cirrhosis of the liver secondary to alcohol abuse. Mother Additional Family Medical History / Comment(s): Mother at age 73 from breast cancer. Brother(s) Additional Family Medical History / Comment(s): Patient has 3 brothers. One brother from cirrhosis of the liver secondary to alcohol abuse. 2 brothers have atrial fibrillation. Sister(s) Additional Family Medical History / Comment(s): Patient has 2 sisters with diabetes. Patient does not have any children. Medications and Allergies Home Medications Medication Instructions Recorded Confirmed Type carBAMazepine [TEGretol] 300 mg PO BID 08/07/16 05/24/21 History [id number]-Gtag [id number] 2 tab PO DAILY PRN 12/14/16 05/24/21 History [Excedrin] Atorvastatin Calcium [Lipitor] 80 mg PO HS 05/24/21 05/24/21 History Brexpiprazole [Rexulti] 1 mg PO DAILY 05/24/21 05/24/21 History DULoxetine HCL [Cymbalta] 120 mg PO DAILY 05/24/21 05/24/21 History Propranolol HCl [Inderal Xl] 80 mg PO DAILY 05/24/21 05/24/21 History clonazePAM [KlonoPIN] 0.5 mg PO DAILY PRN 05/24/21 05/24/21 History clonazePAM [KlonoPIN] 1 - 2 mg PO HS 05/24/21 05/24/21 History lamoTRIgine [LaMICtal] 300 mg PO DAILY 05/24/21 05/24/21 History Allergies Allergy/AdvReac Type Severity Reaction Status Date / Time No Known Allergies Allergy Verified 05/24/21 16:48 Physical Exam Vitals: Vital Signs Temp Pulse Resp BP Pulse Ox 05/25/21 05:58 97.3 F L 72 16 132/73 05/24/21 23:53 96.4 F L 56 L 16 131/83 99 Intake and Output 05/25/21 05/25/21 05/25/21 06:59 14:59 22:59 Other: Weight 87.146 kg Results CBC & Chem 7: 05/25/21 07:05 05/25/21 07:05 Labs: Abnormal Lab Results - Last 24 Hours (Table) 05/25/21 05/25/21 Range/Units 07:05 07:05 WBC 11.2 H (3.8-10.6) k/uL MCV 101.4 H (80.0-100.0) fL Neutrophils # 8.0 H (1.3-7.7) k/uL BUN 21 H (7-17) mg/dL
[2021-05-26] MEDS: lamoTRIgine 100 MG TAB PO SCH (08:42)
[2021-05-26] MEDS: PROPRANOLOL LA 80 MG CAP.SA.24H PO SCH (08:42)
[2021-05-26] MEDS ORDERED: VENLAFAXINE HCL ER 37.5 MG CAP PO SCH (09:00)
[2021-05-26] MEDS ORDERED: DULoxetine HCL 60 MG CAPSULE.DR PO SCH (09:00)
--- NOTE | 2021-05-26 10:13 | P.PN ---
Progress Note - Text Progress Note Date: 05/26/21 Interval History: Patient was seen wandering the hallways and was directable and agreeable to speak with freelance writer in the office. Patient reports that she is feeling better today. She is not reporting any suicidal or homicidal ideation, intention, and/or plan. She is not reporting any auditory or visual hallucinations. She's not reporting any paranoia or other delusions. The patient reports that she found it beneficial to talk about what anxiety is and how to manage anxiety yesterday. She reports that this has given her a different mindset on what is good anxiety and bad anxiety. She reports no issues regarding her sleep. She denies any side effects or medications and has been in adherent. She is tolerating the medication changes well. She is agreeable to discharge tomorrow. Mental Status Exam: General Appearance: Patient appears to be stated age is alert, directable, and cooperative. Behavior: Patient is calmly seated without any agitated behavior. Speech: Patient's speech is fluent and nonpressured. Mood/Affect: Mood is improving mildly, affect is congruent and constricted. Suicidality/Homicidality: Patient denies having any suicidal or homicidal ideation intent or plan. Perceptions: Patient denies any visual hallucinations and denies any auditory hallucinations Though content/process: There is no evidence of any delusional thought content and thought process is linear and goal-directed. Memory and concentration: AOX3, grossly intact for the purposes of this session Judgment and insight: Improving mildly Vital Signs Temp 97.8 F 05/26/21 06:33 Pulse 79 05/26/21 06:33 Resp 18 05/26/21 06:33 BP 109/57 05/26/21 06:33 Pulse Ox 99 05/24/21 23:53 Assessment Major depressive disorder, recurrent, severe, with anxious features Cluster B personality traits Plan: -Patient continues to meet criteria for inpatient psychiatric admission for symptom stabilization and safety. Patient has signed adult voluntary form and medication consent and was placed in patient's chart. -Medications: Decrease Cymbalta to 30 mg by mouth daily and increase Effexor XR to 75 mg daily for depression/anxiety Continue Lamictal 200 mg by mouth daily for mood stabilization Continue carbamazepine intention milligrams by mouth twice a day for seizure disorder -When necessary Klonopin and Haldol for agitation/aggression. -NRT - nicotine patch -SW on board for discharge planning. Encouraged the patient to participate in milieu.
[2021-05-26] MEDS: ACETAMINOPHEN TAB 325 MG TAB PO PRN ×2 (12:02→18:08)
[2021-05-26] MEDS: ATORVASTATIN 80 MG TAB PO SCH (20:55)
[2021-05-27 06:37] VITALS: BP 103/58; PULSE 75; RESP 16; TEMP 97.9
[2021-05-27] MEDS: lamoTRIgine 100 MG TAB PO SCH (08:26)
[2021-05-27] MEDS: PROPRANOLOL LA 80 MG CAP.SA.24H PO SCH (08:26)
[2021-05-27] MEDS ORDERED: DULoxetine HCL 30 MG CAPSULE.DR PO SCH (09:00)
[2021-05-27] MEDS ORDERED: VENLAFAXINE HCL ER 75 MG CAP PO SCH (09:00)
--- NOTE | 2021-05-27 10:51 | P.DS ---
Providers Date of admission: 05/24/21 22:13 Expected date of discharge: 05/27/21 Attending physician: Nam Ma MD Consults: 05/24/21 22:34 Consult Physician Routine Consulting Provider: Raimundo Dumont Consult Reason/Comments: H&P and medical Do you want consulting provider notified?: Yes Primary care physician: Walt Rivera MD - Discharge Diagnosis(es) (1) Major depressive disorder, recurrent severe without psychotic features Current Visit: Yes Status: Acute Priority: High Hospital Course: Admission HPI: Patient is a single, employed, 85-year-old female with significant history of depression, anxiety, and seizure disorder who presents to the hospital with worsening depression and suicidal ideation. Patient presented to the hospital on 05/24/21, and on her own volition due to concerns for worsening depression. Upon evaluation the psychiatric unit, the patient has been reporting that she's been feeling increasingly depressed over the past 6 months. She endorses significant symptoms of depression including anhedonia, crying episodes, irritability, low energy, hopelessness, as well as urges to self-harm. Of concern to the patient, is that she has began experiencing suicidal ideation with a plan to jump out of her third story window. The patient reports numerous stressors that are contributing to her low mood. She reports that she is currently dealing with elevated anxiety due to financial issues which has been causing increased stress for her and her partner. The patient is not reporting any significant history of bipolar symptoms. She reports no history of increased goal-directed activity, mood lability, periods of excessive energy, or grandiosity. The patient does not endorse any significant history of psychosis. She reports no auditory or visual hallucinations. She denies any paranoia or other delusions. The patient reports that her issues with depression and anxiety follow this normal pattern. She states that she'll be stable for many months prior to her medications "not working anymore." She is currently open with [facility] and sees Dr. Bautista as well as a therapist that she sees every other week. Patient states that she has been previously diagnosed with depression and anxiety. The patient reports previous trials of Prozac, Zoloft, lithium, Wellbutrin. She is currently on a home regimen of Cymbalta, Lamictal, and Klonopin. The patient reports that she was last hospitalized in the psychiatric unit approximately 4 years ago on this unit. The patient is currently open with [facility]. As reported 2 prior attempts at suicide in the past by cutting her wrist and overdosing. Hospital course: Upon admission to the unit patient was initially presenting with elevated anxiety, depression, and suicidal ideation. Patient was however directable and agreeable to commence treatment. Patient got along well with other patients on the unit and followed unit protocol. Patient was compliant with the medications and denied any side effects throughout hospital course. Patient was started on Effexor and the patient's Cymbalta was tapered. Plan was to cross titrate Effexor and Cymbalta to address the patient's complaints of depression and anxiety. Furthermore, the patient is prescribed carbamazepine for management of her seizure disorder. This provider discussed with the patient at length the carbamazepine has many interactions with other medications that she may be taking including increasing the metabolism of these medications and therefore decreasing the efficacy. Patient spoke of her stressors and engaged in therapy both group and individual. Patient was also seen by medical team for history and physical exam. Throughout the course of the hospitalization patient gradually improved with regards to her depression, anxiety, suicidality, and became more future oriented with improved insight and judgment. The patient reported a strong desire to live for her health and for her family. On the day of discharge, the patient is not reporting any suicidal or homicidal ideation, intention, and/or plan. She is not reporting any auditory or visual hallucinations. She denies any access to firearms or weapons. The patient does not have a significant history of substance abuse however was counseled on abstaining from all substances including alcohol and marijuana. The patient is prescribed Klonopin and admits to overtaking this medication. She was informed that Klonopin and other benzodiazepine medications can cause increased tolerance of these medications and therefore increased anxiety. The patient was advised to take a medication holiday from benzodiazepine medications. She is agreeable to this idea. The patient was counseled on her medications and the importance of regular compliance and was encouraged to follow-up with outpatient appointments for mental health and for primary care. Prior to discharge, family meeting will be arranged for social work professor to answer questions and ensure safety. Mental status exam: General Appearance: Patient appears to be stated age is alert, pleasant, and cooperative. Patient is in no acute distress and has fair hygiene and grooming Behavior: Patient is calmly seated without any agitated behavior. Speech: Patient's speech is fluent and nonpressured. Mood/Affect: Patient reports their mood is "feeling better.", affect is congruent and euthymic. The patient is bright at times and is able to laugh appropriately. Suicidality/Homicidality: Patient denies having any suicidal or homicidal ideation intent or plan. Perceptions: Patient denies any auditory or visual hallucinations. Though content/process: There is no evidence of any delusional thought content and thought process is linear and goal-directed. Patient is future oriented. Memory and concentration: AOX3, grossly intact for the purposes of this session. Can spell "WORLD" backwards correctly. Judgment and insight: Improved Vital Signs Temp 97.9 F 05/27/21 06:36 Pulse 75 05/27/21 06:36 Resp 16 05/27/21 06:36 BP 103/58 05/27/21 06:36 Pulse Ox 99 05/24/21 23:53 Impression: Major depressive disorder, recurrent, severe, with anxious features Cluster B personality traits Plan: -Continue with discharge today as patient has improved and stabilized psychiatrically and is not currently an imminent threat to herself and/or others. -Continue medications: We will discharge the patient on Effexor XR 150 mg by mouth daily for depression/anxiety Cymbalta was discontinued during this hospitalization Continue Lamictal 200 mg by mouth daily for mood stabilization Continue carbamazepine for seizure disorder. This provider discussed at length with the patient that she should have a discussion with her neurologist syd ding the prescribing of carbamazepine as to whether the patient may be maintained on monotherapy of Lamictal for her seizure disorder. -Patient was counseled on the need for medication compliance and appropriate follow-up at mental health and also primary care for medical issues. Patient verbalized understanding and agreed. -Social work to arrange for and conduct family meeting to ensure safety upon discharge and answer any questions/concerns. Social work also to arrange for patients follow up appointments with [facility] for psychiatric care along with follow up with primary care provider. -Patient counseled on abstaining from recreational drugs and marijuana and alcohol. Was informed/educated on the adverse effects on their physical and mental health. Patient verbally agreed and understood. -Patient was instructed to return to the hospital or seek immediate medical care if their psychiatric or medical symptoms do worsen or reoccur. -Psychoeducation and supportive therapy provided to patient. Risks and benefits of pharmacological treatment versus the risks and benefits of nontreatment weight and discussed. Informed consent discussion held. Common side effects of psychotropics discussed such as, but not limited to headache, GI disturbance, sexual dysfunction, movement disorders, sedation, and orthostatic hypotension. Life threatening and blackbox warnings of prescribed medications also discussed. Potential risks of operating a vehicle or heavy machinery discussed with patient at length. Advised on importance of compliance and a reliable and responsible manner. Patient advised to review FDA consumer labeling of all medications prior to taking. Patient verbalized understanding of potential risks, and agrees with current treatment plan. Patient advised to medically contact physician/emergency personnel if any acute changes in condition occur. Allergies Allergy/AdvReac Type Severity Reaction Status Date / Time No Known Allergies Allergy Verified 05/24/21 16:48 Laboratory Results WBC 11.2 k/uL (3.8-10.6) H 05/25/21 07:05 RBC 3.94 m/uL (3.80-5.40) 05/25/21 07:05 Hgb 13.1 gm/dL (11.4-16.0) 05/25/21 07:05 Hct 39.9 % (34.0-46.0) 05/25/21 07:05 MCV 101.4 fL (80.0-100.0) H 05/25/21 07:05 MCH 33.2 pg (25.0-35.0) 05/25/21 07:05 MCHC 32.8 g/dL (31.0-37.0) 05/25/21 07:05 RDW 13.3 % (11.5-15.5) 05/25/21 07:05 Plt Count 280 k/uL (150-450) 05/25/21 07:05 MPV 7.0 05/25/21 07:05 Neutrophils % 72 % 05/25/21 07:05 Lymphocytes % 18 % 05/25/21 07:05 Monocytes % 7 % 05/25/21 07:05 Eosinophils % 2 % 05/25/21 07:05 Basophils % 1 % 05/25/21 07:05 Neutrophils # 8.0 k/uL (1.3-7.7) H 05/25/21 07:05 Lymphocytes # 2.0 k/uL (1.0-4.8) 05/25/21 07:05 Monocytes # 0.7 k/uL (0-1.0) 05/25/21 07:05 Eosinophils # 0.2 k/uL (0-0.7) 05/25/21 07:05 Basophils # 0.1 k/uL (0-0.2) 05/25/21 07:05 Macrocytosis Slight 05/25/21 07:05 Sodium 141 mmol/L (137-145) 05/25/21 07:05 Potassium 4.5 mmol/L (3.5-5.1) 05/25/21 07:05 Chloride 105 mmol/L (98-107) 05/25/21 07:05 Carbon Dioxide 29 mmol/L (22-30) 05/25/21 07:05 Anion Gap 7 mmol/L 05/25/21 07:05 BUN 21 mg/dL (7-17) H 05/25/21 07:05 Creatinine 0.95 mg/dL (0.52-1.04) 05/25/21 07:05 Est GFR (CKD-EPI)AfAm 77 (>60 ml/min/1.73 sqM) 05/25/21 07:05 Est GFR (CKD-EPI)NonAf 67 (>60 ml/min/1.73 sqM) 05/25/21 07:05 Glucose 99 mg/dL (74-99) 05/25/21 07:[address] Glu mg/dL 123 05/25/21 07:05 Hemoglobin A1c 5.9 % (4.0-6.0) 05/25/21 07:05 Calcium 9.7 mg/dL (8.4-10.2) 05/25/21 07:05 Total Bilirubin 0.4 mg/dL (0.2-1.3) 05/25/21 07:05 AST 36 U/L (14-36) 05/25/21 07:05 ALT 34 U/L (4-34) 05/25/21 07:05 Alkaline Phosphatase 100 U/L (38-126) 05/25/21 07:05 Total Protein 6.7 g/dL (6.3-8.2) 05/25/21 07:05 Albumin 4.1 g/dL (3.5-5.0) 05/25/21 07:05 Triglycerides 117.00 mg/dL (0.00-149.00) 05/25/21 07:05 Cholesterol 190.00 mg/dL (0.00-200.00) 05/25/21 07:05 LDL Cholesterol, Calc 108.6 mg/dL (0.0-131.0) 05/25/21 07:05 VLDL Cholesterol, Calc 23.40 mg/dL (5.00-40.00) 05/25/21 07:05 HDL Cholesterol 58.00 mg/dL (40.00-60.00) 05/25/21 07:05 Cholesterol/HDL Ratio 3.28 Ratio 05/25/21 07:05 TSH 1.470 mIU/L (0.465-4.680) 05/25/21 07:05 Urine Opiates Screen Not Detected (NotDetected) 05/24/21 15:27 Ur Oxycodone Screen Not Detected (NotDetected) 05/24/21 15:27 Urine Methadone Screen Not Detected (NotDetected) 05/24/21 15:27 Ur Propoxyphene Screen Not Detected (NotDetected) 05/24/21 15:27 Ur Barbiturates Screen Not Detected (NotDetected) 05/24/21 15:27 U Tricyclic Antidepress Not Detected (NotDetected) 05/24/21 15:27 Ur Phencyclidine Scrn Not Detected (NotDetected) 05/24/21 15:27 Ur Amphetamines Screen Not Detected (NotDetected) 05/24/21 15:27 U Methamphetamines Scrn Not Detected (NotDetected) 05/24/21 15:27 U Benzodiazepines Scrn Detected (NotDetected) H 05/24/21 15:27 Urine Cocaine Screen Not Detected (NotDetected) 05/24/21 15:27 U Marijuana (THC) Screen Not Detected (NotDetected) 05/24/21 15:27 Coronavirus (PCR) Not Detected (Not Detectd) 05/24/21 21:00 Patient Condition at Discharge: Stable Plan - Discharge Summary Discharge Rx Participant: No New Discharge Prescriptions: New Venlafaxine HCl ER [Effexor XR] 150 mg PO DAILY 30 Days capsule lamoTRIgine [LaMICtal] 300 mg PO DAILY 30 Days tab Continue carBAMazepine [TEGretol] 300 mg PO BID [id number] [phone] [Excedrin] 2 tab PO DAILY PRN PRN Reason: Headache Propranolol HCl [Inderal Xl] 80 mg PO DAILY Atorvastatin Calcium [Lipitor] 80 mg PO HS clonazePAM [KlonoPIN] 0.5 mg PO DAILY PRN PRN Reason: Anxiety clonazePAM [KlonoPIN] 1 - 2 mg PO HS Discontinued DULoxetine HCL [Cymbalta] 120 mg PO DAILY lamoTRIgine [LaMICtal] 300 mg PO DAILY Brexpiprazole [Rexulti] 1 mg PO DAILY Discharge Medication List carBAMazepine [TEGretol] 300 mg PO BID 08/07/16 [History] [id number] [phone] [Excedrin] 2 tab PO DAILY PRN 12/14/16 [History] Atorvastatin Calcium [Lipitor] 80 mg PO HS 05/24/21 [History] Propranolol HCl [Inderal Xl] 80 mg PO DAILY 05/24/21 [History] clonazePAM [KlonoPIN] 0.5 mg PO DAILY PRN 05/24/21 [History] clonazePAM [KlonoPIN] 1 - 2 mg PO HS 05/24/21 [History] Venlafaxine HCl ER [Effexor XR] 150 mg PO DAILY 30 Days capsule 05/27/21 [Rx] lamoTRIgine [LaMICtal] 300 mg PO DAILY 30 Days tab 05/27/21 [Rx] Follow up Appointment(s)/Referral(s): Walt Rivera MD [Primary Care Provider] - 1-2 days Patient Instructions/Handouts: Depression (DC), Help Prevent Suicide (DC), Suicide Prevention (DC) Activity/Diet/Wound Care/Special Instructions: Activity and diet as tolerated. Avoid the use of street drugs and alcohol. Take all medications as prescribed. When you are in need of refills on your medications please contact your medical provider and/or outpatient psychiatrist to have this done. Please go to scheduled outpatient appointment for aftercare treatment. If symptoms return or become worse, call the crisis line at and/or go to the nearest emergency room for evaluation. Discharge Disposition: HOME SELF-CARE
[2021-05-27] MEDS: ACETAMINOPHEN TAB 325 MG TAB PO PRN (10:53)
== END 2021-05-27 16:30 | disposition home or self-care (01) | DRG 885 ==
LOC: EC 13:09 → 3MHU 22:13
PROVIDERS: ADMIT Psychiatry & Neurology Psychiatry; ATTEND Psychiatry & Neurology Psychiatry
DX: F33.2 Major depressive disorder, recurrent severe without psychotic features (principal); R45.851 Suicidal ideations; G40.909 Epilepsy, unspecified, not intractable, without status epilepticus; F60.89 Other specific personality disorders; Z20.822 Contact with and (suspected) exposure to COVID-19; T42.4X1A Poisoning by benzodiazepines, accidental (unintentional), initial encounter; F06.4 Anxiety disorder due to known physiological condition; G43.909 Migraine, unspecified, not intractable, without status migrainosus; D72.829 Elevated white blood cell count, unspecified; E78.5 Hyperlipidemia, unspecified; I34.1 Nonrheumatic mitral (valve) prolapse; N80.9 Endometriosis, unspecified; Z79.82 Long term (current) use of aspirin; Z79.899 Other long term (current) drug therapy; Z90.721 Acquired absence of ovaries, unilateral; Z91.51 Personal history of suicidal behavior; Z59.9 Problem related to housing and economic circumstances, unspecified; Z81.1 Family history of alcohol abuse and dependence; Z83.79 Family history of other diseases of the digestive system; Z80.3 Family history of malignant neoplasm of breast; Z83.3 Family history of diabetes mellitus; Z82.49 Family history of ischemic heart disease and other diseases of the circulatory system
CPT/HCPCS: 80053; 80061; 80306; 82075; 83036; 84443; 85025; 87635; 99285

== ENCOUNTER → 2023-10-02 | Outpatient (CLI) | payer OTHER ==
--- NOTE | 2023-10-11 10:03 | P.CEMON ---
7 DAY EVENT MONITOR REPORT: INDICATION: Palpitations and atrial fibrillation. START DATE: 10/02/2023 END DATE: 10/08/2023 Patient wore the monitor for 5 days which is 71% of total time. FINDINGS: Overall [good] quality study. Patient's baseline rhythm showed atrial fibrillation with a heart rate of 105 bpm Patient was asymptomatic 73% of the total monitored time. Patient reported symptoms 26% of the total monitored time. During the period of 5-day monitoring, patient was mostly in atrial fibrillation. Heart rate noticed during the study was 150 bpm with underlying rhythm being atrial fibrillation. Patient reported symptoms of palpitations, irregular heartbeat, chest heaviness and nausea. All these reported symptoms corresponded to atrial fibrillation. There were no reported bradycardia, pauses or any ventricular arrhythmias. Conclusion Atrial fibrillation. This monitor does not quantify the A-fib burden. Would recommend patient to be started on systemic anticoagulation and AV mindy blocking agents if clinically indicated. Clinical correlation needed. Calvin French MD, FACC, RPVI Thank you for allowing [facility] to participate in this patient's care. Feel free to reach out in case of any followup questions. CC this report to Dr. Walt Rivera MD
--- NOTE | 2023-10-12 11:53 | EM ---
7 DAY EVENT MONITOR REPORT: INDICATION: Palpitations and atrial fibrillation. START DATE: 10/02/2023 END DATE: 10/08/2023 Patient wore the monitor for 5 days which is 71% of total time. FINDINGS: Overall [good] quality study. Patient's baseline rhythm showed atrial fibrillation with a heart rate of 105 bpm Patient was asymptomatic 73% of the total monitored time. Patient reported symptoms 26% of the total monitored time. During the period of 5-day monitoring, patient was mostly in atrial fibrillation. Heart rate noticed during the study was 150 bpm with underlying rhythm being atrial fibrillation. Patient reported symptoms of palpitations, irregular heartbeat, chest heaviness and nausea. All these reported symptoms corresponded to atrial fibrillation. There were no reported bradycardia, pauses or any ventricular arrhythmias. Conclusion Atrial fibrillation. This monitor does not quantify the A-fib burden. Would recommend patient to be started on systemic anticoagulation and AV mindy blocking agents if clinically indicated. Clinical correlation needed. Calvin French MD, FACC, RPVI Thank you for allowing [facility] to participate in this patient's care. Feel free to reach out in case of any followup questions. CC this report to Dr. Walt Rivera MD [facility]
== END | disposition home or self-care (01) ==
LOC: RADECHMAIN 07:38
PROVIDERS: ATTEND Internal Medicine
DX: I48.91 Unspecified atrial fibrillation (principal); R00.2 Palpitations
CPT/HCPCS: 93225; 93226

== ENCOUNTER → 2023-12-11 | Outpatient (CLI) | payer OTHER ==
--- NOTE | 2023-12-12 19:33 | US ---
EXAMINATION TYPE: US arterial LE single level DATE OF EXAM: 12/11/2023 3:02 PM CLINICAL INDICATION: Female, 58 years old with history of I73.9 PERIPHERAL VASCULAR DISEASE, UNSPECIF IED; Bilateral leg pain History of: Smoker: No Hypertension: Yes Diabetic: No Hyperlipidemia: Yes TIA/CVA: No Previous Vascular Surgery: No [place]: No Claudication: Both Doppler Waveforms: Right: Triphasic waveforms in posterior tibial and dorsalis pedis arteries Left: Triphasic waveform in the posterior tibial artery with monophasic waveform within the dorsalis pedis artery. Digital arteries are not evaluated on this exam Right Brachial Pressure: 144 Left Brachial Pressure: 141 Ankle-Brachial Indices: Right: 1.19 Left: 1.26 (Vessel hardening > 1.4; Normal 0.9 - 1.4, Moderate 0.7 - 0.9, Severe 0.5-0.7) IMPRESSION: 1. No significant flow-limiting stenosis based on velocities and ratios
== END | disposition home or self-care (01) ==
LOC: RADUSWWP 14:40
PROVIDERS: ATTEND Internal Medicine
DX: I73.9 Peripheral vascular disease, unspecified (principal)
CPT/HCPCS: 93922

== ENCOUNTER → 2023-12-12 | Outpatient (CLI) | payer OTHER ==
[2023-12-12 19:04] LABS: Carbamazepine (Tegretol) 11.2 UG/ML (4.0-12.0)
== END | disposition home or self-care (01) ==
LOC: LABWHC1 07:35
PROVIDERS: ATTEND Psychiatry & Neurology Neurology
DX: G40.109 Localization-related (focal) (partial) symptomatic epilepsy and epileptic syndromes with simple partial seizures, not intractable, without status epilepticus (principal)
CPT/HCPCS: 36415; 80156; 84295

== ENCOUNTER 2023-12-20 05:51 | Day surgery (SDC) | payer OTHER ==
[2023-12-20 06:34] VITALS: TEMP 96.9
[2023-12-20] MEDS: SODIUM CHLORIDE 0.9% 500 ML DEHP FREE BAG IV STA (06:41)
[2023-12-20] MEDS: IV FLUID CONTINUATION 500 ML IV ONE (06:41)
[2023-12-20 07:15] LABS: Anion Gap 5 mmol/L; Blood Urea Nitrogen 18 mg/dL (7-17); Carbon Dioxide 25 mmol/L (22-30); Chloride 112 mmol/L (98-107); Glucose 99 mg/dL (74-99); Potassium 4.5 mmol/L (3.5-5.1); Sodium 142 mmol/L (137-145)
[2023-12-20] MEDS ORDERED: PROPOFOL 10 MG/ML 20 ML VIAL IV ONE (07:15)
[2023-12-20] MEDS ORDERED: LIDOCAINE 1% INJ 10MG/ML (20 ML MDV) ONE (07:15)
[2023-12-20] MEDS: BENZOCAINE SPRAY 1 CAN TOPICAL STA (07:19)
[2023-12-20 07:31] LABS: African American GFR (CKD) >90 (>60 ml/min/1.73 sqM); Non-African American GFR(CKD) 81 (>60 ml/min/1.73 sqM)
[2023-12-20] MEDS ORDERED: clonazePAM 0.5 MG TAB PO PRN (07:39)
--- NOTE | 2023-12-20 07:43 | P.PCN ---
Date of Procedure: 12/20/23 Description of Procedure: Indication: Atrial fibrillation Procedure Description: After explaining the procedure to the patient, it's risk and complications, blood pressure, heart rate and O2 saturation were monitored. The throat was sprayed with Cetacaine. Patient received sedation per anesthesia department l. The probe was introduced into the esophagus without difficulty. Images were obtained. Following that, the probe was removed. There was no immediate complication. Findings: Left atrial size is dilated, left atrial appendage is normal. Left ventricular systolic function is mildly to moderately impaired with global hypokinesis and ejection fraction of 40 to 45%. The aortic valve appears to be normal. There is thickening of the mitral valve leaflets with bi-leaflet prolapse. The tricuspid valve is normal. Descending thoracic aorta appears to be normal. No pericardial effusion was noted. Contrast bubble study revealed no shunting across the interatrial septum. Doppler: Pulse wave and color Doppler were obtained, and revealed moderate multiple jets mitral regurgitation with mild tricuspid regurgitation. There was no shunting across the interatrial septum. Conclusion: 1. Dilated left atrium with normal appearance of the left atrial appendage 2. Mild to moderate global hypokinesis of the left ventricle 3. Mitral valve prolapse with moderate mitral regurgitation with multiple jets 4. Mild tricuspid regurgitation 5. No shunting across the interatrial septum Cardioversion: After obtaining sedated state and performing KEIKO synchronized biphasic cardioversion using 150 J was performed with sabianism of sinus mechanism. There was no immediate complications.
[2023-12-20] MEDS: SODIUM CHLORIDE 0.9% 1,000 ML IV SCH (07:54)
[2023-12-20] MEDS: IV FLUID CONTINUATION 1,000 ML IV ONE (08:31)
[2023-12-20 08:43] VITALS: BP 116/81; PULSE 57; RESP 18
[2023-12-20] MEDS ORDERED: lamoTRIgine 100 MG TAB PO SCH (09:00)
[2023-12-20] MEDS ORDERED: carBAMazepine 200 MG TAB PO SCH (09:00)
[2023-12-20] MEDS ORDERED: METOPROLOL SUCCINATE (ER) 25 MG TAB.ER.24H PO SCH (09:00)
[2023-12-20] MEDS ORDERED: VENLAFAXINE HCL ER 75 MG CAP PO SCH (09:00)
[2023-12-20] MEDS ORDERED: APIXABAN 5 MG TAB PO SCH (09:00)
[2023-12-20] MEDS ORDERED: LOSARTAN 50 MG TAB PO SCH (09:00)
[2023-12-20] MEDS ORDERED: ATORVASTATIN 80 MG TAB PO SCH (21:00)
== END 2023-12-20 09:01 | disposition home or self-care (01) ==
LOC: OR 05:51
PROVIDERS: ATTEND Internal Medicine Interventional Cardiology
DX: I08.1 Rheumatic disorders of both mitral and tricuspid valves (principal); I48.21 Permanent atrial fibrillation; I10 Essential (primary) hypertension; E78.5 Hyperlipidemia, unspecified; Z87.891 Personal history of nicotine dependence; Z79.01 Long term (current) use of anticoagulants; Z79.899 Other long term (current) drug therapy
CPT/HCPCS: 93312; 93320; 93325; 92960; 80048; J2001; J2704

== ENCOUNTER → 2024-01-14 | Outpatient (CLI) | payer OTHER ==
[2024-01-14 10:20] LABS: HCT 41.5 % (34.0-46.0); HGB 12.8 gm/dL (11.4-16.0); MCH 31.8 pg (25.0-35.0); MCHC 30.7 g/dL (31.0-37.0); MCV 103.5 fL (80.0-100.0); Macrocytosis Slight; Mean Platelet Volume 7.6; Platelet Count 271 k/uL (150-450); RBC 4.02 m/uL (3.80-5.40); RDW 12.6 % (11.5-15.5); WBC 7.4 k/uL (3.8-10.6)
[2024-01-14 16:51] LABS: Blood Urea Nitrogen 20.8 mg/dL (9.0-27.0); Carbon Dioxide 21.9 mmol/L (21.6-31.8); Chloride 106 mmol/L (96-109); Potassium 4.8 mmol/L (3.5-5.5); Sodium 140 mmol/L (135-145)
== END | disposition home or self-care (01) ==
LOC: LABPAT 09:33
PROVIDERS: ATTEND Internal Medicine Interventional Cardiology
DX: Z01.812 Encounter for preprocedural laboratory examination (principal); I48.21 Permanent atrial fibrillation; R07.9 Chest pain, unspecified
CPT/HCPCS: 80051; 82565; 84520; 85027

== ENCOUNTER 2024-01-16 08:00 | Day surgery (SDC) | payer OTHER ==
[2024-01-14 14:55] VITALS: BMI 32.5
[~2024-01-16 08:00] MED LIST: ALPRAZolam 0.25 MG TAB PO PRN; ALPRAZolam 0.5 MG TAB PO PRN; HEPARIN SODIUM,PORCINE (1 ML) 2,500 UNIT in SODIUM CHLORIDE 0.9% 250 ML IRRIGATION PRN; HEPARIN SODIUM,PORCINE 10,000 UNIT in SODIUM CHLORIDE 0.9% 1,000 ML IRRIGATION PRN; NITROGLYCERIN SL TABS 0.4 MG TAB SUBLINGUAL PRN
[2024-01-16] MEDS: SODIUM CHLORIDE 0.9% 1,000 ML in EMPTY BAG 1 BAG IV SCH (08:09)
[2024-01-16] MEDS: IV FLUID CONTINUATION 1,000 ML IV ONE (08:35)
[2024-01-16] MEDS ORDERED: LIDOCAINE 1% INJ 10MG/ML (20 ML MDV) ONE (08:38)
[2024-01-16] MEDS ORDERED: VERAPAMIL 2.5 MG/ML 2 ML AMP ONE (08:38)
[2024-01-16] MEDS ORDERED: HEPARIN SODIUM 1,000 UN/ML (10ML VL) ONE (08:38)
[2024-01-16] MEDS ORDERED: fentaNYL (PF) 50 MCG/ML 2 ML AMP ONE (08:38)
[2024-01-16 08:40] VITALS: RESP 16; TEMP 98.1
[2024-01-16] MEDS: LIDOCAINE 1% INJ 10MG/ML (20 ML MDV) SQ ONE (09:05)
[2024-01-16] MEDS: fentaNYL (PF) 50 MCG/ML 2 ML AMP IVP ONE (09:05)
[2024-01-16] MEDS: VERAPAMIL SYRINGE (5 MG/10 ML) INTRAARTER ONE (09:08)
[2024-01-16] MEDS: HEPARIN SODIUM 1,000 UN/ML (10ML VL) IVP ONE (09:23)
[2024-01-16] MEDS: IOPAMIDOL-370 100ML BTL INJ ONE (09:32)
[2024-01-16 09:39] LABS: O2 Sat Blood Gas 62.2 %
[2024-01-16 09:41] LABS: O2 Sat Blood Gas 60.6 %
[2024-01-16 09:42] LABS: O2 Sat Blood Gas 90.7 %
[2024-01-16] MEDS ORDERED: RX INFO: IV CONTRAST WAS GIVEN 1 EACH MISC MISCELLANE PRN (09:43)
[2024-01-16] MEDS ORDERED: SODIUM CHLORIDE 0.9% 1,000 ML IV SCH (09:45)
--- NOTE | 2024-01-16 09:59 | P.CARDCATH ---
Date of Procedure: 01/16/24 Description of Procedure: Cardiac Catheterization: The patient is a 58-year-old female with history of hypertension and hyperlipidemia who presented with symptoms of progressive dyspnea, exertional chest discomfort and was found to have evidence of mild cardiomyopathy as well as moderate mitral regurgitation. She had atrial fibrillation and underwent cardioversion with baptism of sinus mechanism but with a reoccurrence of the arrhythmia shortly after and is being evaluated for ablation. Her symptoms of dyspnea and chest discomfort are progressive. Recommendations were made regarding cardiac catheterization, the risks and the complications were discussed with the patient who is in full understanding and agreement. Procedure Description: Patient was brought to prestressed concrete laborer in fasting semi-sedated state after receiving Fentanyl and Benadryl achieiving moderate conscious sedated state. Using Xyl ocaine Anesthesia and modified Seldinger technique, a 6-Wallisian sheath was introduced in the right radial artery . The intravenous access catheter in the right basilic vein was exchanged over the wire to a 6 Wallisian sheath. Right heart catheterization was performed using Basile-Frandy catheter. Multiple samples and pressures were obtained. Cardiac output by thermodilution was calculated. Subsequently, selective coronary angiography was performed using a 5-Wallisian 3.5 bend David catheter. Multiple views of the coronary artery including hemiaxial views were obtained. The 5 Wallisian pigtail catheter was used to cross the aortic valve and LVEDP was calculated. An MENDEZ view of the left ventricle was obtained. Following that, catheter and sheath were removed. Hemostasis was obtained with deployment of vascular band . There was no immediate complication. Patient was returned to room in stable condition. Of note, the patient received a total of 4500 units of intravenous heparin as well as intra-arterial verapamil. Findings: Left main: This is a short size vessel, trifurcating into left anterior descending, ramus intermedius and left circumflex. The left main has no obstructive disease LAD: This is a large size vessel, reaching to the apex, giving rise to a proximal moderately sized diagonal branch. The LAD and its branches have no obstructive disease Left circumflex: This is a small nondominant vessel giving rise to an obtuse marginal branch that has no obstructive disease RCA: This is a dominant vessel, bifurcating distally to PDA and PLV, moderate in caliber. The RCA and its branches have no obstructive disease Ramus intermedius: This is a large size vessel reaching to the apical lateral wall. It has no obstructive disease Left Ventriculogram: Performed in the 30 degree MENDEZ view and revealed mild global hypokinesis with an ejection fraction of proximately 50% with evidence of mitral valve prolapse and 2+ mitral regurgitation Hemodynamics: There was no gradient across the aortic valve. Right atrial saturation 62%, pulmonary artery saturation 61%, arterial saturation 91%. Cardiac output by thermodilution 4.2 L/min and by Ricky 5.1 L/min. PA systolic pressure 38, diastolic 17 with a mean of 25 mmHg. Pulmonary capillary wedge pressure V wave of 22 with a mean of 22 mmHg. Right ventricle systolic of 38, diastolic of 10 with a mean of 12 mmHg. Right atrium V wave of 12 with a mean of 12 mmHg., LVEDP was 16-20 mmHg Conclusion: 1. No evidence of obstructive coronary disease 2. Borderline left ventricle systolic function with mitral valve prolapse and 2+ mitral regurgitation 3. Mild pulmonary hypertension 4. Right dominance Recommendations: The patient will continue on her present medical regimen and will continue evaluation for ablation with the attempt to restore sinus mechanism. The findings and the recommendations were discussed with the patient and the family and they were in full understanding and agreement. Duration of sedation is 35 minutes.
[2024-01-16] MEDS: ASPIRIN 325 MG TAB PO ONE (10:02)
[2024-01-16] MEDS: lamoTRIgine 100 MG TAB PO STA (10:03)
[2024-01-16] MEDS: carBAMazepine 200 MG TAB PO STA (10:04)
[2024-01-16] MEDS: METOPROLOL SUCCINATE (ER) 25 MG TAB.ER.24H PO STA (10:04)
[2024-01-16 12:01] VITALS: PULSE 68
[2024-01-16 13:03] VITALS: BP 122/62
[2024-01-16] MEDS ORDERED: ATORVASTATIN 80 MG TAB PO SCH (21:00)
[2024-01-16] MEDS ORDERED: carBAMazepine 200 MG TAB PO SCH (21:00)
[2024-01-16] MEDS ORDERED: METOPROLOL SUCCINATE (ER) 25 MG TAB.ER.24H PO SCH (21:00)
[2024-01-17] MEDS ORDERED: LOSARTAN 50 MG TAB PO SCH (09:00)
[2024-01-17] MEDS ORDERED: VENLAFAXINE HCL ER 75 MG CAP PO SCH (09:00)
== END 2024-01-16 13:04 | disposition home or self-care (01) ==
LOC: CATHCVL 08:00
PROVIDERS: ATTEND Internal Medicine Interventional Cardiology
DX: I48.21 Permanent atrial fibrillation (principal); I27.20 Pulmonary hypertension, unspecified; I34.0 Nonrheumatic mitral (valve) insufficiency; I34.1 Nonrheumatic mitral (valve) prolapse; I10 Essential (primary) hypertension; E78.5 Hyperlipidemia, unspecified
CPT/HCPCS: 93460; 85018; 82810; C1769; C1894; C1751; J2001; J3010; J1644; Q9967

== ENCOUNTER 2024-06-02 21:04 | Emergency (ER) | payer OTHER ==
[2024-06-02 22:00] LABS: Basophils % (A) 0 %; Eosinophils # (A) 0.3 k/uL (0-0.7); Eosinophils % (A) 3 %; HCT 44.1 % (34.0-46.0); HGB 14.3 gm/dL (11.4-16.0); Lymphocytes # (A) 2.5 k/uL (1.0-4.8); Lymphocytes % (A) 23 %; MCH 31.9 pg (25.0-35.0); MCHC 32.4 g/dL (31.0-37.0); MCV 98.6 fL (80.0-100.0); Mean Platelet Volume 7.2; Monocytes # (A) 0.8 k/uL (0-1.0); Monocytes % (A) 8 %; Neutrophils # (A) 6.9 k/uL (1.3-7.7); Neutrophils % (A) 64 %; Platelet Count 282 k/uL (150-450); RBC 4.47 m/uL (3.80-5.40); RDW 13.6 % (11.5-15.5); WBC 10.7 k/uL (3.8-10.6)
[2024-06-02 22:23] LABS: INR 0.9 (<1.2); Partial Thromboplastin Time 23.2 sec (22.0-30.0); Prothrombin Time 9.8 sec (10.0-12.5)
[2024-06-02 22:55] LABS: ALT 39 U/L (4-34); AST 34 U/L (14-36); African American GFR (CKD) >90 (>60 ml/min/1.73 sqM); Albumin 4.1 g/dL (3.5-5.0); Alkaline Phosphatase 124 U/L (38-126); Anion Gap 5 mmol/L; Blood Urea Nitrogen 19 mg/dL (7-17); Calcium 8.8 mg/dL (8.4-10.2); Carbon Dioxide 23 mmol/L (22-30); Chloride 109 mmol/L (98-107); Glucose 93 mg/dL (74-99); Non-African American GFR(CKD) 86 (>60 ml/min/1.73 sqM); Potassium 4.3 mmol/L (3.5-5.1); Sodium 137 mmol/L (137-145); Total Bilirubin 0.3 mg/dL (0.2-1.3); Total Protein 6.5 g/dL (6.3-8.2)
[2024-06-03] MEDS: MECLIZINE 12.5 MG TAB PO STA
[2024-06-03 00:02] VITALS: RESP 16
--- NOTE | 2024-06-03 00:03 | ED ---
Dizziness HPI - General Chief Complaint: Dizziness Stated Complaint: Dizziness Time Seen by Provider: 06/02/24 21:10 Source: patient, EMS Mode of arrival: EMS Limitations: no limitations - History of Present Illness Initial Comments: 59-year-old female who presents to the emergency department reporting dizziness. Patient reports to an episode of dizziness on Sunday. States that for a couple of hours she was having dizziness upon standing. Reports that anytime she moved her head she felt like the room was spinning around her. Symptoms ended up resolving on their own but reoccurred today. She denies any symptoms when she keeps her head still. No history of similar in the past. Denies any head injury. No history of stroke. She does have a history of A-fib and is on anticoagulation. Denies headache or visual changes. No speech deficit. No confusion or slurred speech. Denies any numbness, tingling or weakness in her arms or legs. No recent upper respiratory infection. No tinnitus. Reports that her symptoms came on very suddenly. She is currently under the care of a neurologist, Dr. Hernadez. She has an MRI scheduled for Sunday. States over the past couple of months she has had a tremor and the MRI is being performed for t he indication of tremor. She admits to nausea without vomiting. No neck pain. Denies fevers. No missed doses of her medications. Symptoms tonight are improved from onset. No recent adjustments in her medications. No other alleviating, precipitating modifying factors - Related Data Home Medications Medication Instructions Recorded Confirmed carBAMazepine [TEGretol] 300 mg PO BID 08/07/16 01/16/24 Somgcry-Aahw-Ojii [id number] 2 tab PO DAILY PRN 12/14/16 01/14/24 [Excedrin] Atorvastatin Calcium [Lipitor] 80 mg PO HS 05/24/21 01/16/24 clonazePAM [KlonoPIN] 0.5 mg PO DAILY PRN 05/24/21 01/16/24 clonazePAM [KlonoPIN] 1 - 2 mg PO HS 05/24/21 01/16/24 Apixaban [Eliquis] 5 mg PO BID 12/18/23 01/14/24 Losartan Potassium 50 mg PO DAILY 12/18/23 01/16/24 Metoprolol Succinate [Metoprolol 25 mg PO BID 12/18/23 01/16/24 Succinate ER] lamoTRIgine [LaMICtal] 300 mg PO QAM 01/14/24 01/16/24 Aspirin 81 mg PO DAILY PRN 01/16/24 01/16/24 Previous Rx's Medication Instructions Recorded Venlafaxine HCl ER [Effexor XR] 150 mg PO DAILY 30 Days capsule 05/27/21 Meclizine [Antivert] 25 mg PO TID PRN #21 tab 06/03/24 Allergies Allergy/AdvReac Type Severity Reaction Status Date / Time No Known Allergies Allergy Verified 06/02/24 21:08 Review of Systems ROS Statement: Those systems with pertinent positive or pertinent negative responses have been documented in the HPI. ROS Other: All systems not noted in ROS Statement are negative. Past Medical History Past Medical History: Atrial Fibrillation Additional Past Medical History / Comment(s): Migraine headaches, mitral valve prolapse, epilepsy bronchitis x3 a year ago History of Any Multi-Drug Resistant Organisms: None Reported Additional Past Surgical History / Comment(s): oopherectomy left due to endometriosis Past Anesthesia/Blood Transfusion Reactions: No Reported Reaction Past Psychological History: Anxiety, Depression Smoking Status: Never smoker Past Alcohol Use History: None Reported Past Drug Use History: None Reported - Past Family History Father Additional Family Medical History / Comment(s): Father at age 56 due to cirrhosis of the liver secondary to alcohol abuse. Mother Additional Family Medical History / Comment(s): Mother at age 73 from breast cancer. Brother(s) Additional Family Medical History / Comment(s): Patient has 3 brothers. One brother from cirrhosis of the liver secondary to alcohol abuse. 2 brothers have atrial fibrillation. Sister(s) Additional Family Medical History / Comment(s): Patient has 2 sisters with diabetes. Patient does not have any children. General Exam Limitations: no limitations General appearance: alert, in no apparent distress Head exam: Present: atraumatic, normocephalic, normal inspection Eye exam: Present: normal appearance, PERRL, EOMI. Absent: scleral icterus, conjunctival injection, nystagmus, periorbital swelling ENT exam: Present: normal exam, mucous membranes moist, TM's normal bilaterally Neck exam: Present: normal inspection. Absent: tenderness, meningismus, lymphadenopathy Respiratory exam: Present: normal lung sounds bilaterally. Absent: respiratory distress, wheezes, rales, rhonchi, stridor Cardiovascular Exam: Present: regular rate, normal rhythm, normal heart sounds. Absent: systolic murmur, diastolic murmur, rubs, gallop, clicks GI/Abdominal exam: Present: soft, normal bowel sounds. Absent: distended, tenderness, guarding, rebound, rigid Extremities exam: Present: normal inspection, full ROM, normal capillary refill, other (Mild intention tremor bilaterally). Absent: tenderness, pedal edema, joint swelling, calf tenderness Back exam: Present: normal inspection Neurological exam: Present: alert, oriented X3, CN II-XII intact Psychiatric exam: Present: normal affect, normal mood Skin exam: Present: warm, dry, intact, normal color. Absent: rash Course Vital Signs 06/02/24 06/02/24 06/02/24 21:08 21:16 22:53 Temperature 98.0 F Pulse Rate 79 81 Pulse Rate [ 110 H Sitting] Pulse Rate [ 104 H Standing] Pulse Rate [ 89 Supine] Respiratory 18 18 Rate Blood Pressure 132/80 119/68 Blood Pressure 120/85 [Sitting] Blood Pressure 129/86 [Standing] O2 Sat by Pulse 96 96 Oximetry 06/03/24 06/03/24 00:01 00:54 Temperature 97.3 F L Pulse Rate 91 86 Pulse Rate [ Sitting] Pulse Rate [ Standing] Pulse Rate [ Supine] Respiratory 16 16 Rate Blood Pressure 119/79 108/75 Blood Pressure [Sitting] Blood Pressure [Standing] O2 Sat by Pulse 97 95 Oximetry Medical Decision Making - Medical Decision Making Was pt. sent in by a medical professional or institution (, PA, MOBILITY SCOOTER REPAIRER, urgent care, hospital, or halfway...) When possible be specific @ -No Did you speak to anyone other than the patient for history (EMS, parent, family, police, friend...)? What history was obtained from this source @ -Spoke with EMS for history Did you review nursing and triage notes (agree or disagree)? Why? @ -I reviewed and agree with nursing and triage notes Were old charts reviewed (outside hosp., previous admission, EMS record, old EKG, old radiological studies, urgent care reports/EKG's, halfway records)? Report findings @ -No old charts were reviewed Differential Diagnosis (chest pain, altered mental status, abdominal pain women, abdominal pain men, vaginal bleeding, weakness, fever, dyspnea, syncope, headache, dizziness, GI bleed, back pain, seizure, CVA, palpatations, mental health, musculoskeletal)? @ -Differential Dizziness: Benign paroxysmal positional Vertigo, Meniere's disease, otitis media, acoustic neuroma, vertebrobasilar insufficiency, cerebellar stroke, encephalitis, hypovolemic, arrhythmia, coronary artery syndrome, anemia, this is not meant to be an all-inclusive list EKG interpreted by me (3pts min.). @ -Yes and demonstrates A-fib with a rate of 88. QRS 89. QTc of 422. No acute ST segment elevations or depressions X-rays interpreted by me (1pt min.). @ -None done CT interpreted by me (1pt min.). @ -None done U/S interpreted by me (1pt. min.). @ -None done What testing was considered but not performed or refused? (CT, X-rays, U/S, labs)? Why? @ -CT brain was considered however patient does have resolution of her symptoms in the emergency department after meclizine administration. She also has an MRI scheduled for Sunday What meds were considered but not given or refused? Why? @ -None Did you discuss the management of the patient with other professionals (professionals i.e. , PA, MOBILITY SCOOTER REPAIRER, lab, RT, psych nurse, elementary school social worker, securities consultant, teacher, third officer, case sealer)? Give summary @ -No Was smoking cessation discussed for >3mins.? @ -No Was critical care preformed (if so, how long)? @ -No Were there social determinants of health that impacted care today? How? (Homelessness, low income, unemployed, alcoholism, drug addiction, transportation, low edu. Level, literacy, decrease access to med. care, [place] [facility], rehab)? @ -No Was there de-escalation of care discussed even if they declined (Discuss DNR or withdrawal of care, Hospice)? DNR status @ -No What co-morbidities impacted this encounter? (DM, HTN, Smoking, COPD, CAD, Cancer, CVA, ARF, Chemo, Hep., AIDS, mental health diagnosis, sleep apnea, morbid obesity)? @ -A-fib on anticoagulation Was patient admitted / discharged? Hospital course, mention meds given and route, prescriptions, significant lab abnormalities, going to OR and other pertinent info. @ -Upon arrival patient seen and evaluated in bed 6. Thorough history and physical exam was performed. IV access was established. Patient was given meclizine for her dizziness. She does report that her symptoms are improved from when they first started. Laboratory studies are conducted. After the meclizine patient does have resolution in her symptoms. She is able to get up and ambulate. States that her symptoms are considerably better. I did discuss performing a CT. Patient does have an MRI scheduled on Sunday. This is for a tremor. Patient will follow-up with her neurologist as scheduled. I did recommend that she call the office and notify them that she is having vertigo. Patient will be prescribed a short prescription of meclizine. Instructed to use the medications as directed however if she has any new or worsening symptoms she needs to return to the emergency department. Patient was agreeable to this. Patient discharged home in stable condition Undiagnosed new problem with uncertain prognosis? @ -No Drug Therapy requiring intensive monitoring for toxicity (Heparin, Nitro, Insulin, Cardizem)? @ -No Were any procedures done? @ -No Diagnosis/symptom? @ -Acute vertigo, suspected benign positional vertigo Acute, or Chronic, or Acute on Chronic? @ -Acute Uncomplicated (without systemic symptoms) or Complicated (systemic symptoms)? @ -Complicated Side effects of treatment? @ -No Exacerbation, Progression, or Severe Exacerbation? @ -No Poses a threat to life or bodily function? How? (Chest pain, [place], [place], pneumonia, PE, COPD, DKA, ARF, appy, cholecystitis, CVA, Diverticulitis, Homicidal, Suicidal, threat to staff... and all critical care pts) @ -No - Lab Data Result diagrams: 06/02/24 21:49 06/02/24 22:30 Lab Results 06/02/24 06/02/24 06/02/24 Range/Units 21:49 21:49 21:49 WBC 10.7 H (3.8-10.6) k/uL RBC 4.47 (3.80-5.40) m/uL Hgb 14.3 (11.4-16.0) gm/dL Hct 44.1 (34.0-46.0) % MCV 98.6 (80.0-100.0) fL MCH 31.9 (25.0-35.0) pg MCHC 32.4 (31.0-37.0) g/dL RDW 13.6 (11.5-15.5) % Plt Count 282 (150-450) k/uL MPV 7.2 Neutrophils % 64 % Lymphocytes % 23 % Monocytes % 8 % Eosinophils % 3 % Basophils % 0 % Neutrophils # 6.9 (1.3-7.7) k/uL Lymphocytes # 2.5 (1.0-4.8) k/uL Monocytes # 0.8 (0-1.0) k/uL Eosinophils # 0.3 (0-0.7) k/uL Basophils # 0.0 (0-0.2) k/uL PT 9.8 L (10.0-12.5) sec INR 0.9 (<1.2) APTT 23.2 (22.0-30.0) sec Sodium (137-145) mmol/L Potassium (3.5-5.1) mmol/L Chloride (98-107) mmol/L Carbon Dioxide (22-30) mmol/L Anion Gap mmol/L BUN (7-17) mg/dL Creatinine (0.52-1.04) mg/dL Est GFR (CKD-EPI)AfAm (>60 ml/min/1.73 sqM) Est GFR (CKD-EPI)NonAf (>60 ml/min/1.73 sqM) Glucose (74-99) mg/dL Plasma Lactic Acid Ar (0.7-2.0) mmol/L Calcium (8.4-10.2) mg/dL Total Bilirubin (0.2-1.3) mg/dL AST (14-36) U/L ALT (4-34) U/L Alkaline Phosphatase (38-126) U/L Troponin I (0.000-0.034) ng/mL Total Protein (6.3-8.2) g/dL Albumin (3.5-5.0) g/dL Urine Color Light Yellow Urine Appearance Clear (Clear) Urine pH 5.5 (5.0-8.0) Ur Specific Norton 1.031 (1.001-1.035) Urine Protein Negative (Negative) Urine Glucose (UA) 4+ H (Negative) Urine Ketones Negative (Negative) Urine Blood Trace H (Negative) Urine Nitrite Negative (Negative) Urine Bilirubin Negative (Negative) Urine Urobilinogen <2.0 (<2.0) mg/dL Ur Leukocyte Esterase Negative (Negative) Urine RBC 8 H (0-5) /hpf Urine WBC 2 (0-5) /hpf Ur Squamous Epith Cells <1 (0-4) /hpf Amorphous Sediment Rare H (None) /hpf Hyaline Casts 9 H (0-2) /lpf Urine Mucus Rare H (None) /hpf 06/02/24 06/02/24 06/02/24 Range/Units 21:49 21:49 22:30 WBC (3.8-10.6) k/uL RBC (3.80-5.40) m/uL Hgb (11.4-16.0) gm/dL Hct (34.0-46.0) % MCV (80.0-100.0) fL MCH (25.0-35.0) pg MCHC (31.0-37.0) g/dL RDW (11.5-15.5) % Plt Count (150-450) k/uL MPV Neutrophils % % Lymphocytes % % Monocytes % % Eosinophils % % Basophils % % Neutrophils # (1.3-7.7) k/uL Lymphocytes # (1.0-4.8) k/uL Monocytes # (0-1.0) k/uL Eosinophils # (0-0.7) k/uL Basophils # (0-0.2) k/uL PT (10.0-12.5) sec INR (<1.2) APTT (22.0-30.0) sec Sodium 137 (137-145) mmol/L Potassium 4.3 (3.5-5.1) mmol/L Chloride 109 H (98-107) mmol/L Carbon Dioxide 23 (22-30) mmol/L Anion Gap 5 mmol/L BUN 19 H (7-17) mg/dL Creatinine 0.75 (0.52-1.04) mg/dL Est GFR (CKD-EPI)AfAm >90 (>60 ml/min/1.73 sqM) Est GFR (CKD-EPI)NonAf 86 (>60 ml/min/1.73 sqM) Glucose 93 (74-99) mg/dL Plasma Lactic Acid Ar 1.0 (0.7-2.0) mmol/L Calcium 8.8 (8.4-10.2) mg/dL Total Bilirubin 0.3 (0.2-1.3) mg/dL AST 34 (14-36) U/L ALT 39 H (4-34) U/L Alkaline Phosphatase 124 (38-126) U/L Troponin I <0.012 (0.000-0.034) ng/mL Total Protein 6.5 (6.3-8.2) g/dL Albumin 4.1 (3.5-5.0) g/dL Urine Color Urine Appearance (Clear) Urine pH (5.0-8.0) Ur Specific Norton (1.001-1.035) Urine Protein (Negative) Urine Glucose (UA) (Negative) Urine Ketones (Negative) Urine Blood (Negative) Urine Nitrite (Negative) Urine Bilirubin (Negative) Urine Urobilinogen (<2.0) mg/dL Ur Leukocyte Esterase (Negative) Urine RBC (0-5) /hpf Urine WBC (0-5) /hpf Ur Squamous Epith Cells (0-4) /hpf Amorphous Sediment (None) /hpf Hyaline Casts (0-2) /lpf Urine Mucus (None) /hpf Disposition Clinical Impression: Vertigo Disposition: HOME SELF-CARE Condition: Stable Instructions (If sedation given, give patient instructions): Dizziness (ED) Additional Instructions: Please use the Antivert as needed for dizziness. Follow-up on Sunday at your scheduled MRI appointment. Return to the emergency department for any new or worsening symptoms Prescriptions: Meclizine [Antivert] 25 mg PO TID PRN #21 tab PRN Reason: Vertigo Is patient prescribed a controlled substance at d/c from ED?: No Referrals: Walt Rivera MD [Primary Care Provider] - 1-2 days Lauren Wen MD [REFERRING] - 1-2 days Time of Disposition: 00:48
[2024-06-03 00:31] LABS: Amorphous Sediment,Urine Rare /hpf; Appearance,Urine Clear (Clear); Bilirubin,Urine Negative (Negative); Blood,Urine Trace (Negative); Color,Urine Light Yellow; Glucose,Urine (UA) 4+ (Negative); Hyaline Casts,Urine 9 /lpf (0-2); Ketones,Urine Negative (Negative); Leukocyte Esterase,Urine Negative (Negative); Mucus,Urine Rare /hpf; Nitrite,Urine Negative (Negative); PH, Urine 5.5 (5.0-8.0); Protein,Urine Negative (Negative); RBC,Urine 8 /hpf (0-5); Specific Gravity,Urine 1.031 (1.001-1.035); Squamous Epithelial Cell,Urine <1 /hpf (0-4); Urobilinogen,Urine <2.0 mg/dL (<2.0); WBC,Urine 2 /hpf (0-5)
[2024-06-03 00:58] VITALS: BP 108/75; PULSE 86; TEMP 97.3
== END 2024-06-03 00:58 | disposition home or self-care (01) ==
LOC: EC 21:04
DX: R42 Dizziness and giddiness (principal); I48.91 Unspecified atrial fibrillation
CPT/HCPCS: 36415; 80053; 81001; 83605; 84484; 85025; 85610; 85730; 93005; 99284

== ENCOUNTER → 2024-10-24 | Day surgery (SDC) | payer OTHER ==
[~2024-10-24] MED LIST changes: -ALPRAZolam 0.25 MG TAB PO PRN; -ALPRAZolam 0.5 MG TAB PO PRN; +APIXABAN 5 MG TAB PO SCH; +ATORVASTATIN 80 MG TAB PO SCH; +DILTIAZEM CD 180 MG CAP.ER.24H PO SCH; -HEPARIN SODIUM,PORCINE (1 ML) 2,500 UNIT in SODIUM CHLORIDE 0.9% 250 ML IRRIGATION PRN; -HEPARIN SODIUM,PORCINE 10,000 UNIT in SODIUM CHLORIDE 0.9% 1,000 ML IRRIGATION PRN; +LIDOCAINE 1% INJ 10MG/ML (20 ML MDV) ONE; +LOSARTAN 50 MG TAB PO SCH; -NITROGLYCERIN SL TABS 0.4 MG TAB SUBLINGUAL PRN; +PROPOFOL 10 MG/ML 20 ML VIAL IV ONE; +SODIUM CHLORIDE 0.9% 500 ML IV SCH; +VENLAFAXINE HCL ER 75 MG CAP PO SCH
[2024-10-24 09:24] LABS: Glucose,Whole Blood 107 mg/dL (70-110)
[2024-10-24] MEDS: SODIUM CHLORIDE 0.9% 500 ML 500 ML IV ONE (09:25)
[2024-10-24 09:32] VITALS: TEMP 97
[2024-10-24 09:58] LABS: African American GFR (CKD) >90 (>60 ml/min/1.73 sqM); Anion Gap 9 mmol/L; Blood Urea Nitrogen 19 mg/dL (7-17); Calcium 9.2 mg/dL (8.4-10.2); Carbon Dioxide 25 mmol/L (22-30); Chloride 105 mmol/L (98-107); Glucose 109 mg/dL (74-99); Non-African American GFR(CKD) 85 (>60 ml/min/1.73 sqM); Sodium 139 mmol/L (137-145)
[2024-10-24 09:59] LABS: Potassium 4.8 mmol/L (3.5-5.1)
[2024-10-24] MEDS: BENZOCAINE SPRAY 1 EACH MUCOUS MEM STA (10:04)
--- NOTE | 2024-10-24 10:33 | P.PCN ---
Date of Procedure: 10/24/24 Description of Procedure: Indication: Atrial fibrillation Procedure Description: After explaining the procedure to the patient, it's risk and complications, blood pressure, heart rate and O2 saturation were monitored. The throat was sprayed with Cetacaine. Patient received sedation per anesthesia department l. The probe was introduced into the esophagus without difficulty. Images were obtained. Following that, the probe was removed. There was no immediate complication. Findings: Left atrial size is dilated, left atrial appendage is normal. Left ventricular systolic function is borderline normal with ejection fraction of 50 to 55% with global hypokinesis. The aortic valve appears to be normal. The mitral valve is thickened with evidence of bileaflet mild to moderate prolapse. The tricuspid valve is normal. Pulmonic valve is normal. No pericardial effusion was noted. Pericardial fat pad was noted. Descending thoracic aorta appears to be normal. Contrast bubble study revealed no shunting across the interatrial septum. Doppler: Pulse wave and color Doppler were obtained, and revealed moderate to severe eccentric mitral regurgitation with mild tricuspid regurgitation and mild pulmonary hypertension. Trace aortic regurgitation was noted. There was no shunting by color Doppler study. Conclusion: 1. Dilated left atrium with normal appearance of the left atrial appendage 2. Left ventricular systolic function borderline normal 3. Bileaflet mitral valve prolapse with moderate to severe mitral regurgitation 4. Mild tricuspid regurgitation with mild pulmonary hypertension 5. Trace aortic regurgitation 6. No shunting across the interatrial septum. Cardioversion: After performing KEIKO and obtaining sedated state per anesthesia department a synchronized biphasic cardioversion was performed with hinduism of sinus mechanism, there was no immediate complications.
[2024-10-24 10:47] VITALS: RESP 16
[2024-10-24 11:22] VITALS: BP 114/81; PULSE 71
== END | disposition home or self-care (01) ==
LOC: OR 08:41
PROVIDERS: ATTEND Internal Medicine Interventional Cardiology
DX: I48.21 Permanent atrial fibrillation (principal); I08.3 Combined rheumatic disorders of mitral, aortic and tricuspid valves; I42.8 Other cardiomyopathies; I20.9 Angina pectoris, unspecified; I27.20 Pulmonary hypertension, unspecified; K21.9 Gastro-esophageal reflux disease without esophagitis; I10 Essential (primary) hypertension; E78.2 Mixed hyperlipidemia; F41.9 Anxiety disorder, unspecified; F32.A Depression, unspecified; G43.909 Migraine, unspecified, not intractable, without status migrainosus; Z86.69 Personal history of other diseases of the nervous system and sense organs; Z79.02 Long term (current) use of antithrombotics/antiplatelets; Z79.899 Other long term (current) drug therapy
CPT/HCPCS: 93312; 93320; 93325; 92960; 80048; J2003; J2704

== ENCOUNTER → 2025-01-14 | Outpatient (CLI) | payer OTHER ==
[2025-01-14 18:40] LABS: HCT 41.7 % (37.2-46.3); HGB 13.2 g/dL (12.0-15.0); MCH 31.0 pg (27.0-32.0); MCHC 31.7 g/dL (32.0-37.0); MCV 97.9 FL (80.0-97.0); NRBC Per 100 WBC 0 X 10*3/uL (0.00-0.01); Platelet Count 331 X 10*3/uL (140-440); RBC 4.26 X 10*6/uL (4.10-5.20); RDW 14.0 % (11.5-14.5); WBC 8.39 X 10*3/uL (4.50-10.00)
[2025-01-14 18:53] LABS: Anion Gap 14.90 mmol/L (4.00-12.00); Blood Urea Nitrogen 20.4 mg/dL (9.0-27.0); Carbon Dioxide 24.1 mmol/L (21.6-31.8); Chloride 103 mmol/L (96-109); Potassium 4.7 mmol/L (3.5-5.5); Sodium 142 mmol/L (135-145)
== END | disposition home or self-care (01) ==
LOC: LABPAT 13:49
PROVIDERS: ATTEND Internal Medicine Clinical Cardiac Electrophysiology
DX: Z01.812 Encounter for preprocedural laboratory examination (principal); I48.19 Other persistent atrial fibrillation; I34.0 Nonrheumatic mitral (valve) insufficiency
CPT/HCPCS: 36415; 80051; 82565; 84520; 85027

== ENCOUNTER 2025-01-15 09:02 | Day surgery (SDC) | payer OTHER ==
[2025-01-13 16:18] VITALS: BMI 32.8
[2025-01-15 09:42] LABS: Glucose,Whole Blood 108 mg/dL (70-110)
[2025-01-15] MEDS: IV FLUID CONTINUATION 1,000 ML IV ONE (09:42)
[2025-01-15] MEDS: SODIUM CHLORIDE 0.9% 1,000 ML IV SCH (09:42)
[2025-01-15 09:57] LABS: Basophils # (A) 0.04 10*3/uL (0.00-0.10); Basophils % (A) 0.6 %; Eosinophils # (A) 0.22 10*3/uL (0.04-0.35); Eosinophils % (A) 3.4 %; HCT 36.8 % (37.2-46.3); HGB 12.4 g/dL (12.0-15.0); Lymphocytes # (A) 1.36 10*3/uL (0.90-5.00); Lymphocytes % (A) 20.9 %; MCH 32.0 pg (27.0-32.0); MCHC 33.7 g/dL (32.0-37.0); MCV 95.1 fL (80.0-97.0); Monocytes # (A) 0.69 10*3/uL (0.20-1.00); Monocytes % (A) 10.6 %; Neutrophils # (A) 4.17 10*3/uL (1.80-7.70); Neutrophils % (A) 64.0 %; Platelet Count 262 10*3/uL (140-440); RBC 3.87 10*6/uL (4.10-5.20); RDW 13.8 % (11.5-14.5); WBC 6.51 10*3/uL (4.50-10.00)
[2025-01-15 10:33] LABS: African American GFR (CKD) 80 (>60 ml/min/1.73 sqM); Anion Gap 10 mmol/L; Blood Urea Nitrogen 22 mg/dL (7-17); Calcium 9.9 mg/dL (8.4-10.2); Carbon Dioxide 30 mmol/L (22-30); Chloride 104 mmol/L (98-107); Glucose 106 mg/dL (74-99); Non-African American GFR(CKD) 70 (>60 ml/min/1.73 sqM); Potassium 5.1 mmol/L (3.5-5.1); Sodium 144 mmol/L (137-145)
[2025-01-15] MEDS ORDERED: LIDOCAINE 4% LTA KIT (4 ML) TOPICAL ONE (10:58)
[2025-01-15] MEDS ORDERED: SUCCINYLCHOLINE CHLORIDE 200 MG/10 ML VIAL IV ONE (10:58)
[2025-01-15] MEDS ORDERED: ROCURONIUM 10 MG/ML (5 ML VIAL) IV ONE (10:58)
[2025-01-15] MEDS ORDERED: PHENYLEPHRINE 10 MG/ML VIAL ONE (10:58)
[2025-01-15] MEDS ORDERED: NEOSTIGMINE 1 MG/ML 10 ML VIAL ONE (10:58)
[2025-01-15] MEDS ORDERED: LIDOCAINE 1% INJ 10MG/ML (20 ML MDV) ONE (10:58)
[2025-01-15] MEDS ORDERED: HEPARIN SODIUM,PORCINE 5,000 UNIT/ML 1 ML VIAL ONE (10:58)
[2025-01-15] MEDS ORDERED: HEPARIN SODIUM,PORCINE 10,000 UNIT/ML 1 ML VIAL ONE (10:58)
[2025-01-15] MEDS ORDERED: PROPOFOL 10 MG/ML 20 ML VIAL IV ONE (10:58)
[2025-01-15] MEDS ORDERED: fentaNYL (PF) 50 MCG/ML 2 ML AMP ONE (10:58)
[2025-01-15] MEDS ORDERED: GLYCOPYRROLATE 0.2 MG/ML 2 ML VIAL ONE (10:58)
--- NOTE | 2025-01-15 11:24 | P.HPCAR ---
History of Present Illness This is Dr. 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 Multiple short abbreviated lesions were delivered for complete isolation previously PLAN: Continue Eliquis calculate the dose of heparin proceed with EP study and mapping of the left and right atria and plan ablation strategy intraoperatively. For redo A-fib ablation HPI Patient continues to have shortness of breath and palpitations. She also has a cough Last left ventricular ejection fraction was about 52% ROS: No fever chills or rigors, no cough, phlegm or expectoration, no nausea, vomiting or diarrhea, no hematuria, dysuria, no musculoskeletal complaints, no strokes or seizures, no skin lesions. EXAMINATION: 99 F, pulse rate 102 beats minute at rest patient in atrial fibrillation at this time irregular rhythm respirations 16 no orthopnea Blood pressure 136/77 mmHg Heart sounds irregular no murmurs No JVD No lower extremity edema REVIEW OF LABS, ECG & MEDICAL DATA Normal white count, hemoglobin 12.4, normal platelet count Normal electrolytes normal renal function Normal TSH of 2.0 Previously she had an extensive A-fib ablation involving PVI. The right superior pulmonary vein showed transient phrenic nerve paresis. Multiple short abbreviated lesions were given at the antral level to avoid the phrenic nerve. She also underwent left atrial septal ablation posterior wall and left atrial roof ablation The right inferior pulmonary vein is very posteriorly directed She is on clonazepam Tegretol Lamictal. She takes diltiazem 240 mg p.o. daily atorvastatin Eliquis 5 mg twice daily She took her Eliquis this morning Losartan Jardiance aspirin Physical Exam Vitals: Vital Signs Temp Pulse Resp BP BP Pulse Ox 01/15/25 09:47 99.1 F 102 H 16 136/77 127/92 94 L Intake and Output 01/14/25 01/15/25 01/15/25 22:59 06:59 14:59 Intake Total 0 Balance 0 Intake: IV 0 Other: Weight 89.7 kg Past Medical History Past Medical History: Atrial Fibrillation, Chest Pain / Angina, Hyperlipidemia, Hypertension, Mitral Valve Prolapse (MVP), Seizure Disorder Additional Past Medical History / Comment(s): See Cardiology H&P. Migraine headaches, epilepsy- last seizure approx >10 yrs ago. History of Any Multi-Drug Resistant Organisms: None Reported Past Surgical History: Cardiac Ablation, Heart Catheterization Additional Past Surgical History / Comment(s): Oopherectomy left due to endometriosis 1998, colonoscopy, KEIKO/Cardioversion. Past Anesthesia/Blood Transfusion Reactions: No Reported Reaction Smoking Status: Never smoker - Past Family History Father Additional Family Medical History / Comment(s): Father at age 56 due to cirrhosis of the liver secondary to alcohol abuse. Mother Family Medical History: Cancer, Pulmonary Embolus Additional Family Medical History / Comment(s): Mother at age 73 from breast cancer. Brother(s) Additional Family Medical History / Comment(s): Patient has 3 brothers. One brother from cirrhosis of the liver secondary to alcohol abuse. 2 brothers have atrial fibrillation. Sister(s) Family Medical History: Diabetes Mellitus Additional Family Medical History / Comment(s): Patient has 2 sisters with diabe corby. Patient does not have any children. Physical Examination Vital Signs Temp Pulse Resp BP BP Pulse Ox 01/15/25 09:47 99.1 F 102 H 16 136/77 127/92 94 L Intake and Output 01/14/25 01/15/25 01/15/25 22:59 06:59 14:59 Intake Total 0 Balance 0 Intake: IV 0 Other: Weight 89.7 kg Results 01/15/25 09:29 01/15/25 09:29 CBC 01/15/25 Range/Units 09:29 WBC 6.51 (4.50-10.00) 10*3/uL RBC 3.87 L (4.10-5.20) 10*6/uL Hgb 12.4 (12.0-15.0) g/dL Hct 36.8 L (37.2-46.3) % Plt Count 262 (140-440) 10*3/uL Comprehensive Metabolic Panel 01/15/25 Range/Units 09:29 Sodium 144 (137-145) mmol/L Potassium 5.1 (3.5-5.1) mmol/L Chloride 104 (98-107) mmol/L Carbon Dioxide 30 (22-30) mmol/L BUN 22 H (7-17) mg/dL Creatinine 0.90 (0.52-1.04) mg/dL Glucose 106 H (74-99) mg/dL Calcium 9.9 (8.4-10.2) mg/dL Current Medications Generic Name Dose Route Start Last Admin Trade Name Lawrence PRN Reason Stop Dose Admin Sodium Chloride 1,000 mls @ 20 mls/hr 01/15/25 05:58 01/15/25 09:42 Saline 0.9% IV 02/14/25 05:57 20 mls/hr .Q24H OLESYA Administration Lactated Ringer's 1,000 mls @ 20 mls/hr 01/15/25 05:58 Lactated Ringers IV 02/14/25 05:57 .Q24H OLESYA Lactated Ringer's 1,000 mls @ 20 mls/hr 01/15/25 05:58 Lactated Ringers IV 02/14/25 05:57 .Q24H OLESYA Intake and Output 01/14/25 01/15/25 01/15/25 22:59 06:59 14:59 Intake Total 0 Balance 0 Intake: IV 0 Other: Weight 89.7 kg Patient Weight 01/16/25 06:59 Weight 89.7 kg 01/15/25 09:29 01/15/25 09:29
[2025-01-15] MEDS: LIDOCAINE 1% INJ 10MG/ML (20 ML MDV) SQ ONE (11:29)
[2025-01-15] MEDS: HEPARIN SOD,PORK IN 0.45% NACL 25,000 UNIT in 0.45% NACL 1 250ML.BAG IV ONE (11:30)
[2025-01-15] MEDS: HEPARIN SODIUM (1,000 UNIT/ML) 1,000 UNIT in SODIUM CHLORIDE 0.9% 1,000 ML IRRIGATION ONE (12:00)
[2025-01-15] MEDS: LACTATED RINGERS 1,000 ML IV ONE (14:00)
[2025-01-15] MEDS ORDERED: FAMOTIDINE 20 MG TAB PO PRN (15:32)
--- NOTE | 2025-01-15 16:15 | P.EPPROC ---
- EP Procedure Note Electrophysiology Procedure Note: Diagnosis Persistent symptomatic atrial fibrillation with history of nonischemic cardiomyopathy Failed prior ablation On multiple drugs that interact with virtually all antiarrhythmic drugs. Antiarrhythmic drug therapy to be avoided on account of this. Final diagnosis Successful antral level isolation of all pulmonary veins Left atrial roof ablation Left atrial septal ablation Left atrial ridge ablation Mitral isthmus RF line, anterior LA Electrical cardioversion thereafter Voltage mapping in sinus rhythm showed quiescent pulmonary veins, complete block along all RF lines. Cardiac rotation, difficult transseptal Large left atrium Very large pulmonary veins especially the right sided veins Details Patient was brought to the EP lab in a fasting state. Written informed consent was obtained prior to the procedure. Under general anesthesia, venous accesses were placed in the right left femoral veins. The patient was in atrial fibrillation the start of the study. Initially seemed that she was in an atrial tachycardia but there was a variation in the cycle length as well as in the P wave morphology in the inferior leads. Coronary sinus catheter was placed intracardiac echo catheter was placed VISI go long sheath was placed. Transseptal catheterization was difficult and finally it was performed without the transseptal needle. The sheath was manipulated and the tip was anchored in the mid septum and a transseptal needle wire was passed through into the left atrium, through the fossa ovalis. This was followed by the dilator, an advantage wire was then placed into the left atrium and then the sheath was placed in the left atrium. Patient received IV heparin Intracardiac echo confirmed absence of intracardiac mass or thrombus in the left atrium or the appendage. Mildly thickened pericardium without effusion at baseline. Large left atrium and large right-sided pulmonary veins Voltage mapping of the left atrium was performed. This took an extended. Time using the Penta ray catheter on account of a very large left atrium and large pulmonary veins. The right-sided pulmonary veins were active especially posteriorly The septum was active There is a small gap in the roof of the left atrium First roofline was made anteriorly. Later a complete block was confirmed across this line with voltage mapping The left atrial septal ablation was performed from the right sided end of the left atrial roof to the right inferior pulmonary vein anteriorly. Right sided pulmonary vein ablation was performed posteriorly after deflection of the esophagus Ablation anteriorly in the left superior and inferior pulmonary veins was performed at the level of the ridge Thereafter the mitral isthmus line was made anteriorly, carefully avoiding the aortic root which was mapped and tagged on intracardiac echo Following that electrical cardioversion was performed. Voltage mapping was then repeated in sinus rhythm and the pulmonary veins were completely quiescent. All RF lines made showed complete quiescence prolong the line of block Sinus cycle length 800 ms OH interval 240 ms QRS 104 and QT 448 ms AH interval 138 ms HV interval 58 ms RA pressure 15/10/13 LA pressure 27/5/18 mmHg At the end of the procedure no pericardial effusion noted Patient tolerated procedure well without any acute complications Procedures performed Diagnosis EP study The coronary sinus pacing recording Intracardiac echo Left and right transseptal catheterization PVI Left atrial roof ablation Left atrial septal ablation Mitral isthmus ablation, anterior RF line in the LA Electrical cardioversion to sinus rhythm Long procedure increased complexity and duration on account of the size of the left atrium size of the pulmonary veins and difficulties with transseptal catheterization on account of cardiac rotation
[2025-01-15] MEDS: ACETAMINOPHEN IV (For NPO) 1,000 MG in EMPTY BAG 1 BAG IVPB ONE (16:16)
[2025-01-15] MEDS: LACTATED RINGERS 1,000 ML IV SCH ×2 (20:43→23:09)
[2025-01-15] MEDS: ATORVASTATIN 80 MG TAB PO SCH (22:01)
[2025-01-15] MEDS: APIXABAN 5 MG TAB PO SCH (22:01)
[2025-01-15] MEDS: carBAMazepine 200 MG TAB PO SCH (22:01)
[2025-01-15] MEDS: DAPAGLIFLOZIN PROPANEDIOL 5 MG TABLET PO SCH (22:02)
[2025-01-15] MEDS: clonazePAM 0.5 MG TAB PO PRN (22:05)
[2025-01-15] MEDS: ACETAMINOPHEN TAB 325 MG TAB PO PRN (22:05)
[2025-01-16 06:30] LABS: Basophils # (A) 0.03 10*3/uL (0.00-0.10); Basophils % (A) 0.3 %; Eosinophils # (A) 0.05 10*3/uL (0.04-0.35); Eosinophils % (A) 0.5 %; HCT 31.0 % (37.2-46.3); HGB 10.0 g/dL (12.0-15.0); Lymphocytes # (A) 1.50 10*3/uL (0.90-5.00); Lymphocytes % (A) 15.9 %; MCH 31.5 pg (27.0-32.0); MCHC 32.3 g/dL (32.0-37.0); MCV 97.8 fL (80.0-97.0); Monocytes # (A) 0.99 10*3/uL (0.20-1.00); Monocytes % (A) 10.5 %; Neutrophils # (A) 6.81 10*3/uL (1.80-7.70); Neutrophils % (A) 72.5 %; Platelet Count 207 10*3/uL (140-440); RBC 3.17 10*6/uL (4.10-5.20); RDW 14.2 % (11.5-14.5); WBC 9.41 10*3/uL (4.50-10.00)
[2025-01-16] MEDS: VENLAFAXINE HCL ER 150 MG CAP PO SCH (08:17)
[2025-01-16] MEDS: lamoTRIgine 100 MG TAB PO SCH (08:17)
[2025-01-16] MEDS: FUROSEMIDE 10 MG/ML 4 ML VIAL IV STA (08:17)
[2025-01-16] MEDS: LOSARTAN 50 MG TAB PO SCH (10:19)
[2025-01-17 06:04] LABS: Basophils # (A) 0.03 10*3/uL (0.00-0.10); Basophils % (A) 0.3 %; Eosinophils # (A) 0.24 10*3/uL (0.04-0.35); Eosinophils % (A) 2.1 %; HCT 31.1 % (37.2-46.3); HGB 10.1 g/dL (12.0-15.0); Lymphocytes # (A) 0.96 10*3/uL (0.90-5.00); Lymphocytes % (A) 8.6 %; MCH 31.5 pg (27.0-32.0); MCHC 32.5 g/dL (32.0-37.0); MCV 96.9 fL (80.0-97.0); Monocytes # (A) 1.20 10*3/uL (0.20-1.00); Monocytes % (A) 10.7 %; Neutrophils # (A) 8.70 10*3/uL (1.80-7.70); Neutrophils % (A) 77.9 %; Platelet Count 206 10*3/uL (140-440); RBC 3.21 10*6/uL (4.10-5.20); RDW 14.0 % (11.5-14.5); WBC 11.17 10*3/uL (4.50-10.00)
[2025-01-17 06:21] LABS: African American GFR (CKD) >90 (>60 ml/min/1.73 sqM); Anion Gap 9 mmol/L; Blood Urea Nitrogen 19 mg/dL (7-17); Calcium 9.0 mg/dL (8.4-10.2); Carbon Dioxide 25 mmol/L (22-30); Chloride 106 mmol/L (98-107); Glucose 93 mg/dL (74-99); Non-African American GFR(CKD) >90 (>60 ml/min/1.73 sqM); Potassium 3.9 mmol/L (3.5-5.1); Sodium 140 mmol/L (137-145)
[2025-01-17] MEDS ORDERED: CEFUROXIME 1,500 MG in SODIUM CHLORIDE 0.9% 100 ML IVPB SCH (09:00)
[2025-01-17] MEDS: FUROSEMIDE 40 MG TAB PO STA (09:17)
[2025-01-17] MEDS: DILTIAZEM ORAL 30 MG TAB PO SCH (09:18)
--- NOTE | 2025-01-17 09:29 | XR ---
EXAMINATION TYPE: XR chest 2V DATE OF EXAM: 01/17/2025 8:54 AM COMPARISON: Chest radiographs from 07/29/2018. CLINICAL INDICATION: Female, 59 years old with history of shortness of breath; [facility] TECHNIQUE: XR chest 2V Frontal and lateral views of the chest. FINDINGS: Lungs/Pleura: Bibasilar airspace opacities at the elevated right diaphragm on today's exam. There is no evidence of pleural effusion, focal consolidation, or pneumothorax. Pulmonary vascularity: Unremarkable. Heart/mediastinum: Cardiomediastinal silhouette is unremarkable. Musculoskeletal: No acute osseous pathology. IMPRESSION: Right basilar airspace opacities bilaterally for developing pneumonia. Elevated right diaphragm. [facility], , 01/17/2025 9:26 AM
[2025-01-18] MEDS: FUROSEMIDE 10 MG/ML 2 ML VIAL IV ONE (06:22)
[2025-01-18 07:28] VITALS: BP 130/79; PULSE 98; RESP 18; TEMP 98.1
--- NOTE | 2025-01-18 13:49 | P.PN ---
Progress Note - Text First day after her EP study and ablation Seen on January 15, 2025 on the sixth floor On the evening prior she had oozing from the left groin that could not be controlled with FemoStop pressure. In addition she had abdominal discomfort in the inguinal area just above the access site. Under local anesthesia and sterile precautions a soft suture was placed and a knot was placed over rolled up 4 x 4. This resulted in good compression and no further bleeding as was seen the next day The next morning on Sunday she had lesser discomfort in the lower abdomen on the left side bruising in the groin Her hemoglobin did drop to 10. She was also hypoxic without oxygen and she was coughing She had no fever minimal discomfort in the chest no swallowing problems On examination her blood pressure was stable she was afebrile. The maximum temperature in the first 12 hours post ablation was 99 degrees but subsequently it was around 98 degrees Breath sounds are reduced bilaterally with crackles at both bases Heart sounds are normal and regular Rhythm is regular Impression A-fib ablation with RF. She was over 2 L of fluid so plus at the end of the procedure Maintaining sinus rhythm Long-acting Cardizem was held Likely fluid overload during RF ablation Plan IV Lasix 40 mg given on Sunday Incentive spirometry Groin suture maintained. No further bleeding
--- NOTE | 2025-01-18 13:54 | P.PN ---
Subjective January 17, 2025. Patient seen in the morning Groin bleeding had stopped. Hemoglobin has remained stable Minimal increase in white count but completely afebrile occasional chest discomfort just under the clavicle on the left side but no central discomfort. This was clearly pleuritic in nature. She did have a little cough No swallowing difficulty On examination she was hypoxic off oxygen 98 F blood pressure was normal Heart sounds are normal regular no murmurs Breath sounds are reduced bilaterally with some crackles at the right base Labs were reviewedHemoglobin stable at 10.1 white count 11.1 electrolytes normal Chest x-ray performed. Elevated right diaphragm but previously also noted in 2019 Right basilar airspace opacity. Bilateral Impression A-fib ablation with RF Groin bleeding stopped. No further abdominal or groin pain or swelling Fluid overload on account of IV fluid resuscitation during the procedure, shortness of breath with hypoxia Possible developing aspiration pneumonitis resulting in hypoxia cough Plan Start IV antibiotics, ceftriaxone 1 g daily P.o. Lasix 40 mg Continue anticoagulation uninterrupted. Anticoagulation was continued uninterrupted right from the day of the ablation Cardizem was on hold all other medications were to continue including losartan Continue monitoring as an inpatient Objective - Vital Signs Vital signs: Vital Signs Temp 98.1 F 01/18/25 07:00 Pulse 98 01/18/25 07:00 Resp 18 01/18/25 08:00 BP 130/79 01/18/25 07:00 Pulse Ox 96 01/18/25 07:00 FiO2 Intake & Output 01/17/25 01/18/25 01/18/25 18:59 06:59 18:59 Intake Total 416 250 Balance 416 250 Intake: Oral 416 250 Other: Voiding Method Toilet Toilet Toilet # Voids 3 2 - Labs CBC & Chem 7: 01/17/25 05:32 01/17/25 05:32
--- NOTE | 2025-01-18 13:58 | P.DS ---
Providers Attending physician: Casey Barbosa Primary care physician: Walt Rivera MD Hospital Course: Today Mallory is doing a lot better. She is not hypoxic anymore and is off oxygen She would like to go home. She looks well She has no chest discomfort a little bit of cough no sore throat no swallowing difficulty no dysphagia she has no headaches She is ambulating around the room On examination vitals are stable heart rates are normal blood pressure is normal no JVD Crackles, fine at the right base only Heart sounds are normal no murmurs or gallops or rub Completely afebrile Impression Persistent atrial fibrillation Status post A-fib ablation with RF Iatrogenic fluid overload during RF ablation Received IV Lasix followed by p.o. Lasix. This morning she got p.o. Lasix once again Likely aspiration pneumonitis resulting in hypoxia but now shows significant clinical improvement with improvement in oxygenation within 24 hours She has remained completely afebrile since Sunday Plan Discharge home on Augmentin for at least 7 days with 1 refill Continue anticoagulation interrupted Continue all other cardiac medication including losartan Hold long-acting Cardizem 180 mg p.o. daily. Switch to short acting 30 mg twice daily of Cardizem Follow-up in 1 week in the office Patient Condition at Discharge: Stable Plan - Discharge Summary Discharge Rx Participant: No New Discharge Prescriptions: New Diltiazem Oral [Cardizem*] 30 mg PO BID #180 tab Discontinued dilTIAZem HCL [dilTIAZem HCL 24Hr ER (CD)] 180 mg PO DAILY No Action carBAMazepine [TEGretol] 300 mg PO BID [id number] [Excedrin] 2 tab PO DAILY PRN PRN Reason: Headache Atorvastatin Calcium [Lipitor] 80 mg PO HS clonazePAM [KlonoPIN] 0.5 mg PO DAILY PRN PRN Reason: Anxiety Venlafaxine HCl ER [Effexor XR] 150 mg PO DAILY 30 Days capsule Losartan Potassium 50 mg PO DAILY Empagliflozin [Jardiance] 10 mg PO BID Unk Vitamin D 2 tab PO DAILY Famotidine [Pepcid] 20 mg PO DAILY PRN PRN Reason: Indigestion clonazePAM [KlonoPIN] 1 - 2 mg PO HS Apixaban [Eliquis] 5 mg PO BID lamoTRIgine [LaMICtal] 300 mg PO QAM Meclizine [Antivert] 25 mg PO TID PRN #21 tab PRN Reason: Vertigo Discharge Medication List carBAMazepine [TEGretol] 300 mg PO BID 08/07/16 [History] [id number] [Excedrin] 2 tab PO DAILY PRN 12/14/16 [History] Atorvastatin Calcium [Lipitor] 80 mg PO HS 05/24/21 [History] clonazePAM [KlonoPIN] 0.5 mg PO DAILY PRN 05/24/21 [History] clonazePAM [KlonoPIN] 1 - 2 mg PO HS 05/24/21 [History] Venlafaxine HCl ER [Effexor XR] 150 mg PO DAILY 30 Days capsule 05/27/21 [Rx] Apixaban [Eliquis] 5 mg PO BID 12/18/23 [History] Losartan Potassium 50 mg PO DAILY 12/18/23 [History] lamoTRIgine [LaMICtal] 300 mg PO QAM 01/14/24 [History] Meclizine [Antivert] 25 mg PO TID PRN #21 tab 06/03/24 [Rx] Empagliflozin [Jardiance] 10 mg PO BID 08/25/24 [History] Unk Vitamin D 2 tab PO DAILY 10/22/24 [History] Famotidine [Pepcid] 20 mg PO DAILY PRN 10/24/24 [History] Diltiazem Oral [Cardizem*] 30 mg PO BID #180 tab 01/15/25 [Rx] Follow up Appointment(s)/Referral(s): Casey Barbosa MD [STAFF PHYSICIAN] - 1 Week Activity/Diet/Wound Care/Special Instructions: Post EP study - Ablation instructions 1. Keep access sites dry for 2 days. 2. No heavy lifting or straining for 2 days. 3. Avoid bending the hips repeatedly for 2 days. 4. You may go up and down stairs slowly 5. If you have had an ablation for atrial fibrillation or atrial flutter and are on a blood thinner, do not stop the blood thinner even temporarily for 3 months post ablation Call if the following is noted 1. Bleeding, increasing swelling or pain at the access sites. 2. Increasing chest discomfort, especially upon taking a deep breath. 3. Increasing shortness of breath, at rest or with exertion. 4. Undue cough / phlegm 5. Difficulty or pain while swallowing. 6. Pain or change in color in the extremities. 7. Fever, chills, rigors. 8. Increasing headache or neurologic symptoms. 9. Dizziness, fainting, palpitations For patients who have undergone an A-fib ablation /atrial flutter ablation Strict instruction; do NOT stop anticoagulation (Eliquis/Xarelto/Pradaxa) for the next 2 months temporarily, for any elective, nonurgent surgery. This increases the risk of stroke, post A-fib ablation Stop Cardizem CD/diltiazem ER long-acting 180 mg p.o. daily Start Cardizem 30 mg twice daily p.o.
[2025-01-18] MEDS: AMOXIC-POT CLAV 875-125MG 1 EACH TAB PO SCH (14:00)
== END 2025-01-18 14:12 | disposition home or self-care (01) ==
LOC: CATHEP 09:02 → 6NMEDSUR 15:41 → CATHEP 01-18 14:12
PROVIDERS: ATTEND Internal Medicine Clinical Cardiac Electrophysiology
DX: I48.19 Other persistent atrial fibrillation (principal); E78.5 Hyperlipidemia, unspecified; G40.909 Epilepsy, unspecified, not intractable, without status epilepticus; I10 Essential (primary) hypertension; I42.8 Other cardiomyopathies; I47.19 Other supraventricular tachycardia; I34.1 Nonrheumatic mitral (valve) prolapse; Z79.01 Long term (current) use of anticoagulants; Z79.84 Long term (current) use of oral hypoglycemic drugs; Z79.899 Other long term (current) drug therapy
CPT/HCPCS: 92960; 93656; 93657; 86900; 86901; 80048; 84443; 85025 ×2; 86850; C1759; C1769 ×4; C1894; C1766; C1760 ×3; C1730; C1731; C1732; J0330; J1644 ×4; J2710; J2003; J0696; J3010; J0131; J2704; J2371; J1596; J1938 ×2